=== PATIENT | male | born 1945 | race African-American/Black ===

== ENCOUNTER 2017-05-29 17:00 | Inpatient (IN) | payer MEDICARE, MEDICAID ==
[~2017-05-29] VITALS: Ht 182.9 cm; Wt 76.9 kg
[~2017-05-29 17:00] MED LIST: ASPI81TA27 PO; ATOR20TA50 PO; CAPT12.533 PO; CARV6.2551 PO; FURO20TA3 PO; SPIR25TA89 PO
[2017-05-29] MEDS ORDERED: SODIUM CHLORIDE 0.9% 1,000 ML IVB ONE (17:35)
[2017-05-29 17:43] LABS: Basophils # (auto) 0 uL; Basophils % (auto) 0.7 % (0.0-2.0); CONDITION Y; Eosinophils # (auto) 0 uL; Eosinophils % (auto) 0.1 % (0.0-7.0); Hematocrit 46.7 % (41.0-53.0); Hemoglobin 15.9 g/dL (13.5-17.5); Lymphocytes # (auto) 1.8 uL; Lymphocytes % (auto) 23.4 % (10.0-50.0); Mean Corpuscular Hemoglobin 33.2 pg (28.0-32.0); Mean Corpuscular Volume 97.6 fL (80.0-100.0); Mean Platelet Volume 9.5 fL (7.4-10.4); Monocytes # (auto) 0.8 uL; Monocytes % (auto) 10.4 % (0.0-12.0); Neutrophils # (auto) 4.9 uL; Neutrophils % (auto) 65.4 % (37.0-80.0); Platelet Count (auto) 250 10^3/uL (140-450); Red Cell Distribution Width 14.1 % (11.6-16.0); White Blood Cell 7.5 10^3/uL (4.4-10.8)
[2017-05-29 17:54] LABS: INR 1.05 (0.9-1.15); Partial Thromboplastin Time 26.5 sec (22.64-33.71); Prothrombin Time 11.4 sec (9.37-12.3)
[2017-05-29 18:00] LABS: Magnesium 2.2 mg/dL (1.6-2.6)
[2017-05-29 18:01] LABS: Albumin 3.6 g/dL (3.4-5.0); BUN/Creatinine Ratio 23.4; Bilirubin, Total 1.5 mg/dL (0.2-1.0); Calcium 8.7 mg/dL (8.5-10.1); Potassium 3.7 mmol/L (3.5-5.1); Total Protein 8.3 g/dL (6.4-8.2)
[2017-05-29] MEDS ORDERED: ONDANSETRON HCL 4 MG/2 ML VIAL IV ONE ×2 (18:15→20:30)
[2017-05-29] MEDS ORDERED: MORPHINE SULF INJ 2 MG/ML SYRINGE 1ML IV ONE (20:30)
[2017-05-29 21:57] LABS: Temperature: 22.2 C (20.0-25.0)
[2017-05-29] MEDS ORDERED: PANTOPRAZOLE SODIUM 40 MG/10 ML VIAL IV ONE (22:15)
[2017-05-29] MEDS ORDERED: TEMAZEPAM 15 MG CAP PO PRN (22:15)
[2017-05-29] MEDS ORDERED: DEXTROSE (50%) 50ML SYRG IV PRN (22:15)
[2017-05-29] MEDS ORDERED: ACETAMINOPHEN 325 MG TAB PO PRN (22:15)
[2017-05-29 23:05] VITALS: BP 114/43
[2017-05-29] MEDS: ACCU-CHEK COMFORT CURVE STRIP VI SCH (23:59)
[2017-05-29] MEDS: InsuLIN REG 1unit/0.01ml Soln (100units/ml) SC SCH (23:59)
[2017-05-30] MEDS ORDERED: METF-370 PO (01:05)
[2017-05-30] MEDS ORDERED: TEMA15CA PO (01:05)
[2017-05-30] MEDS ORDERED: OXYC30TA50 PO (01:05)
[2017-05-30] MEDS ORDERED: TRAZ100T2 PO (01:05)
[2017-05-30] MEDS ORDERED: OXYC15TA77 PO (01:05)
[2017-05-30 05:01] VITALS: BP 129/74
[2017-05-30] MEDS: ACCU-CHEK COMFORT CURVE STRIP VI SCH ×3 (05:58→18:07)
[2017-05-30] MEDS: InsuLIN REG 1unit/0.01ml Soln (100units/ml) SC SCH ×3 (05:58→18:00)
[2017-05-30 06:20] LABS: Basophils # (auto) 0 uL; Basophils % (auto) 0.2 % (0.0-2.0); CONDITION Y; Eosinophils # (auto) 0 uL; Eosinophils % (auto) 0.4 % (0.0-7.0); Hematocrit 43.8 % (41.0-53.0); Hemoglobin 14.9 g/dL (13.5-17.5); Lymphocytes # (auto) 2.5 uL; Lymphocytes % (auto) 32.2 % (10.0-50.0); Mean Corpuscular Hemoglobin 33.3 pg (28.0-32.0); Mean Corpuscular Volume 97.9 fL (80.0-100.0); Mean Platelet Volume 9.6 fL (7.4-10.4); Monocytes # (auto) 1.1 uL; Monocytes % (auto) 13.9 % (0.0-12.0); Neutrophils # (auto) 4.1 uL; Neutrophils % (auto) 53.3 % (37.0-80.0); Platelet Count (auto) 229 10^3/uL (140-450); Red Cell Distribution Width 13.9 % (11.6-16.0); White Blood Cell 7.7 10^3/uL (4.4-10.8)
[2017-05-30 06:27] LABS: Albumin 3.2 g/dL (3.4-5.0); Calcium 8.5 mg/dL (8.5-10.1); Potassium 3.7 mmol/L (3.5-5.1)
[2017-05-30 06:31] LABS: BUN/Creatinine Ratio 23.7; Bilirubin, Total 1.5 mg/dL (0.2-1.0); Total Protein 7.2 g/dL (6.4-8.2)
[2017-05-30] MEDS: HYDROcodone-ACET 5/325MG TAB PO PRN ×2 (08:41→15:49)
[2017-05-30] MEDS: ONDANSETRON HCL 4 MG/2 ML VIAL IV PRN ×2 (08:41→15:48)
[2017-05-30 08:47] VITALS: BP 124/79
[2017-05-30] MEDS: ENOXAPARIN SOD 40 MG/0.4 ML SYRINGE SC SCH (09:44)
[2017-05-30] MEDS: CARVEDILOL 3.125 MG TAB PO SCH ×2 (09:45→22:35)
[2017-05-30] MEDS: SPIRONOLACTONE 25 MG TAB PO SCH (09:45)
[2017-05-30] MEDS: ASPirin 81 mg TAB PO SCH (09:46)
[2017-05-30] MEDS: FUROSEMIDE 40 MG TAB PO SCH (09:46)
[2017-05-30] MEDS ORDERED: PANTOPRAZOLE SODIUM 40 MG/10 ML VIAL IV SCH (10:00)
[2017-05-30 12:40] VITALS: BP 144/49
[2017-05-30] MEDS ORDERED: LACTULOSE 20Gm/30ML SOLN PO PRN (14:30)
[2017-05-30 17:22] VITALS: BP 118/62
[2017-05-30 17:49] LABS: Urine Bilirubin Negative (Negative); Urine Color Yellow (Yellow); Urine Glucose Normal (Normal); Urine Hyaline Cast FEW /lpf (0 - 2); Urine Ketone Negative (Negative); Urine Mucus FEW (None Seen); Urine Nitrite Negative (Negative); Urine RBC 36 /hpf (0 - 3); Urine Squamous Epithelial Cell FEW /hpf (<5)
[2017-05-30 17:51] LABS: Urine Blood 2+ /uL (Negative)
[2017-05-30 20:00] VITALS: BP 109/70
[2017-05-30] MEDS: PANTOPRAZOLE SODIUM 40 MG/10 ML VIAL IV SCH (21:15)
[2017-05-30 21:30] VITALS: BP 109/70
[2017-05-30] MEDS ORDERED: ATORVASTATIN 20 MG TAB PO SCH (22:00)
[2017-05-31] MEDS: InsuLIN REG 1unit/0.01ml Soln (100units/ml) SC SCH ×2 (00:14→06:00)
[2017-05-31] MEDS: ACCU-CHEK COMFORT CURVE STRIP VI SCH ×2 (00:14→06:05)
[2017-05-31 05:00] VITALS: BP 95/55
[2017-05-31 09:00] VITALS: BP 100/57
[2017-05-31] MEDS: PANTOPRAZOLE SODIUM 40 MG/10 ML VIAL IV SCH (09:55)
[2017-05-31] MEDS: ENOXAPARIN SOD 40 MG/0.4 ML SYRINGE SC SCH (09:55)
[2017-05-31] MEDS: ASPirin 81 mg TAB PO SCH (09:56)
[2017-05-31] MEDS: FUROSEMIDE 40 MG TAB PO SCH (09:56)
[2017-05-31] MEDS: SPIRONOLACTONE 25 MG TAB PO SCH (09:56)
[2017-05-31 12:46] VITALS: BP 100/57
== END 2017-05-31 15:30 | disposition home or self-care (01) | DRG 392 ==
LOC: ER 17:16 → OVERFLOW 17:17 → WEST WING 23:05
PROVIDERS: ADMIT Nurse Practitioner; ATTEND Internal Medicine Pulmonary Disease
DX: K29.70 Gastritis, unspecified, without bleeding (principal); I50.42 Chronic combined systolic (congestive) and diastolic (congestive) heart failure; E11.9 Type 2 diabetes mellitus without complications; E78.5 Hyperlipidemia, unspecified; J44.9 Chronic obstructive pulmonary disease, unspecified; E86.0 Dehydration; F17.210 Nicotine dependence, cigarettes, uncomplicated; I11.0 Hypertensive heart disease with heart failure; I25.10 Atherosclerotic heart disease of native coronary artery without angina pectoris; K40.90 Unilateral inguinal hernia, without obstruction or gangrene, not specified as recurrent; K42.9 Umbilical hernia without obstruction or gangrene; N28.1 Cyst of kidney, acquired; E80.6 Other disorders of bilirubin metabolism; Z82.49 Family history of ischemic heart disease and other diseases of the circulatory system; Z83.3 Family history of diabetes mellitus; Z87.442 Personal history of urinary calculi; Z79.82 Long term (current) use of aspirin
CPT/HCPCS: 36415; 71010; 74176; 80053; 81001; 82150; 82962; 83690; 83735; 83880; 84484; 85025; 85610; 85730; 93005; 94761; 96361; 96374; 96375; 96376; C9113; J1815; J2405

== ENCOUNTER 2018-07-01 17:21 | Emergency (ER) | payer MEDICARE, MEDICAID ==
[~2018-07-01] VITALS: Ht 182.9 cm; Wt 81.6 kg
[~2018-07-01 17:21] MED LIST changes: +CAPT12.52 PO; -CAPT12.533 PO; +ESOM40CA39 PO; +FLUO20CA19 PO; +GLIP5TAB77 PO; +LORA-622 PO; +METF-370 PO; +ONDA4TAB5 PO; +OXYC15TA77 PO; +OXYC30TA50 PO; +POTA20TA53 PO; +TEMA15CA PO; +TRAZ100T2 PO
[2018-07-01 20:49] VITALS: BP 90/66
[2018-07-01] MEDS ORDERED: MEPERIDINE HCL (25 MG/ML) 1ML VIAL IM ONE (21:15)
== END 2018-07-01 22:47 | disposition home or self-care (01) ==
LOC: ER 17:22
DX: M54.2 Cervicalgia (principal); R51 Headache; I11.0 Hypertensive heart disease with heart failure; I50.9 Heart failure, unspecified; J44.9 Chronic obstructive pulmonary disease, unspecified; E78.5 Hyperlipidemia, unspecified; I25.10 Atherosclerotic heart disease of native coronary artery without angina pectoris; F17.210 Nicotine dependence, cigarettes, uncomplicated; Z87.442 Personal history of urinary calculi; Z79.82 Long term (current) use of aspirin
CPT/HCPCS: 70450; 71046; 72125; 96372; 99284; J2175

== ENCOUNTER 2018-07-08 15:13 | Inpatient (IN) | payer MEDICARE, MEDICAID ==
[~2018-07-08] VITALS: Ht 182.9 cm; Wt 88.2 kg
[~2018-07-08 15:13] MED LIST changes: +SPIR25TA8 PO; -SPIR25TA89 PO
[2018-07-08 16:22] LABS: Basophils # (auto) 0 uL; Eosinophils # (auto) 0.1 uL; Eosinophils % (auto) 1.1 % (0.0-7.0); Lymphocytes # (auto) 0.5 uL; Lymphocytes % (auto) 8.6 % (10.0-50.0); Monocytes # (auto) 0.5 uL
[2018-07-08 16:23] LABS: Basophils % (auto) 0.6 % (0.0-2.0); Hematocrit 41.7 % (41.0-53.0); Mean Corpuscular Hgb Conc. 33.5 g/dL (32.0-36.0); Mean Corpuscular Volume 104.7 fL (80.0-100.0); Monocytes % (auto) 7.7 % (0.0-12.0); Neutrophils # (auto) 5.1 uL; Nucleated Red Blood Cells % 0.1 %; Platelet Count (auto) 165 10^3/uL (140-450); Red Blood Cells 3.98 10^6/uL (4.5-5.90); Red Cell Distribution Width 14.5 % (11.8-14.3); White Blood Cell 6.2 10^3/uL (4.4-10.8)
[2018-07-08 16:38] LABS: Albumin 3.2 g/dL (3.4-5.0); BUN/Creatinine Ratio 16.5; Bilirubin, Total 1.5 mg/dL (0.2-1.0); Calcium 8.4 mg/dL (8.5-10.1); Magnesium 2.1 mg/dL (1.6-2.6); Potassium 4.2 mmol/L (3.5-5.1); Total Protein 7.2 g/dL (6.4-8.2)
[2018-07-08] MEDS ORDERED: FUROSEMIDE 20 MG/2 ML VIAL IV ONE ×2 (20:00→22:15)
[2018-07-08] MEDS ORDERED: MORPHINE SULF INJ 2 MG/ML SYRINGE 1ML IV ONE ×2 (20:15→21:45)
[2018-07-08] MEDS ORDERED: ONDANSETRON HCL 4 MG/2 ML VIAL IV ONE (20:15)
[2018-07-08] MEDS ORDERED: LORazepam 2MG/ML-1ML VIAL IV ONE (22:15)
[2018-07-08] MEDS ORDERED: MORPHINE SULFATE 4 MG/ML SYR/VIAL IV ONE (22:15)
[2018-07-08] MEDS ORDERED: IOHEXOL 350 MG/ML 100ML IJ ONE (22:23)
[2018-07-09] MEDS ORDERED: ACETAMINOPHEN 325 MG TAB PO PRN (01:30)
[2018-07-09] MEDS ORDERED: ONDANSETRON HCL 4 MG/2 ML VIAL IV PRN (01:30)
[2018-07-09] MEDS ORDERED: MORPHINE SULF INJ 2 MG/ML SYRINGE 1ML IV PRN ×2 (01:30)
[2018-07-09] MEDS ORDERED: NITROGLYCERIN 0.4 MG SL TAB SL PRN (01:30)
[2018-07-09] MEDS ORDERED: ETOMIDATE (2MG/ML) 20ML VIAL IV ONE (03:45)
[2018-07-09] MEDS ORDERED: cefTRIAXone 1GM/10ml IVPUSH 10 ML IV ONE ×3 (05:30→13:15)
[2018-07-09] MEDS ORDERED: ALBUTEROL SULF 2.5 MG/0.5ML(0.5%) NEB SOLN NEB ONE ×2 (05:30)
[2018-07-09] MEDS ORDERED: IPRATROPIUM BROM 0.5 MG/2.5ML INH SOL NEB ONE ×2 (05:30)
[2018-07-09] MEDS ORDERED: LORazepam 2MG/ML-1ML VIAL ONE (05:58)
[2018-07-09] MEDS ORDERED: HALOPERIDOL LACTATE 5 MG/ML INJ VIAL IM ONE (06:00)
[2018-07-09] MEDS ORDERED: LORazepam 2MG/ML-1ML VIAL IM PRN (06:00)
[2018-07-09] MEDS ORDERED: diphenhdrAMINE HCL 50 MG/1 ML VL IM ONE (06:00)
[2018-07-09] MEDS ORDERED: LORazepam 2MG/ML-1ML VIAL IV PRN (06:30)
[2018-07-09 08:00] VITALS: BP_SYST 105; BP_SYST 110; BP_DIAS 47; BP_DIAS 72
[2018-07-09] MEDS: glipiZIDE 5 MG TAB PO SCH (08:00)
[2018-07-09] MEDS: FUROSEMIDE 20 MG/2 ML VIAL IV SCH ×2 (09:34→18:42)
[2018-07-09] MEDS: LORATADINE 10 MG TAB PO SCH (10:00)
[2018-07-09] MEDS: SPIRONOLACTONE 25 MG TAB PO SCH (10:00)
[2018-07-09] MEDS: ASPirin 81 mg TAB PO SCH (10:00)
[2018-07-09] MEDS: FAMOTIDINE 20 MG TAB PO SCH ×2 (10:00→22:30)
[2018-07-09] MEDS: POTASSIUM CHL 20 Meq TABLET PO SCH (10:00)
[2018-07-09] MEDS: ENOXAPARIN SOD 40 MG/0.4 ML SYRINGE SC SCH (11:39)
[2018-07-09 12:00] VITALS: BP 120/72
[2018-07-09] MEDS ORDERED: AZITHROMYCIN 500MG/ 250ML 250 ML IV ONE (13:15)
[2018-07-09 14:03] LABS: Potassium 4.1 mmol/L (3.5-5.1)
[2018-07-09 14:06] LABS: Magnesium 1.9 mg/dL (1.6-2.6)
[2018-07-09] MEDS: LORazepam 2MG/ML-1ML VIAL IV PRN (15:45)
[2018-07-09 15:48] VITALS: BP 123/70
[2018-07-09] MEDS ORDERED: DEXTROSE (50%) 50ML SYRG IV PRN (19:45)
[2018-07-09 20:00] VITALS: BP 107/59
[2018-07-09] MEDS: SACUBITRIL-VALSARTAN 24mg/26mg TAB PO SCH (22:30)
[2018-07-09] MEDS: TEMAZEPAM 15 MG CAP PO PRN (22:30)
[2018-07-09] MEDS: ATORVASTATIN 20 MG TAB PO SCH (22:31)
[2018-07-10] VITALS (45 sets, daily range): BP systolic 75–122; BP diastolic 38–69
[2018-07-10] MEDS: MIDAZOLAM DRIP 50 mg/50mL 50 ML IV SCH (00:21)
[2018-07-10] MEDS: ACCU-CHEK COMFORT CURVE STRIP VI SCH ×4 (00:23→17:20)
[2018-07-10] MEDS: InsuLIN REG 1unit/0.01ml Soln (100units/ml) SC SCH ×3 (00:24→17:45)
[2018-07-10] MEDS: LORazepam 2MG/ML-1ML VIAL IV PRN (03:18)
[2018-07-10 05:25] LABS: Basophils # (auto) 0 uL; Eosinophils # (auto) 0 uL; Lymphocytes # (auto) 0.8 uL; Lymphocytes % (auto) 8.1 % (10.0-50.0); Monocytes # (auto) 1.1 uL; Monocytes % (auto) 10.9 % (0.0-12.0); Neutrophils # (auto) 7.8 uL; Nucleated Red Blood Cells % 0.1 %
[2018-07-10 05:27] LABS: Basophils % (auto) 0.1 % (0.0-2.0); Hematocrit 41.5 % (41.0-53.0); Hemoglobin 13.9 g/dL (13.5-17.5); Mean Corpuscular Hemoglobin 34.9 pg (28.0-32.0); Mean Corpuscular Hgb Conc. 33.4 g/dL (32.0-36.0); Mean Corpuscular Volume 104.3 fL (80.0-100.0); Neutrophils % (auto) 80.9 % (37.0-80.0); Platelet Count (auto) 153 10^3/uL (140-450); Red Blood Cells 3.98 10^6/uL (4.5-5.90); Red Cell Distribution Width 14.6 % (11.8-14.3); White Blood Cell 9.7 10^3/uL (4.4-10.8)
[2018-07-10 05:52] LABS: Albumin 2.8 g/dL (3.4-5.0); BUN/Creatinine Ratio 21.1; Bilirubin, Total 0.7 mg/dL (0.2-1.0); Calcium 8.5 mg/dL (8.5-10.1); Potassium 4.1 mmol/L (3.5-5.1); Total Protein 6.7 g/dL (6.4-8.2)
[2018-07-10] MEDS: FUROSEMIDE 20 MG/2 ML VIAL IV SCH ×2 (06:32→17:20)
[2018-07-10] MEDS: IPRATROPIUM BROM 0.5 MG/2.5ML INH SOL NEB SCH ×4 (07:18→19:06)
[2018-07-10] MEDS: MAGNESIUM SULFATE 1GM/100ML 100 ML IV SCH ×2 (08:19→09:45)
[2018-07-10] MEDS: POTASSIUM CHL 20 Meq TABLET PO SCH (08:54)
[2018-07-10] MEDS: LORATADINE 10 MG TAB PO SCH (08:54)
[2018-07-10] MEDS: SPIRONOLACTONE 25 MG TAB PO SCH (08:54)
[2018-07-10] MEDS: ASPirin 81 mg TAB PO SCH (08:54)
[2018-07-10] MEDS: ENOXAPARIN SOD 40 MG/0.4 ML SYRINGE SC SCH (08:55)
[2018-07-10] MEDS: glipiZIDE 5 MG TAB PO SCH (08:56)
[2018-07-10] MEDS: SACUBITRIL-VALSARTAN 24mg/26mg TAB PO SCH ×2 (08:58→22:00)
[2018-07-10] MEDS ORDERED: cefTRIAXone 1GM/10ml IVPUSH 10 ML IV SCH (09:00)
[2018-07-10] MEDS ORDERED: AZITHROMYCIN 500MG/ 250ML 250 ML IV SCH (10:00)
[2018-07-10] MEDS: FAMOTIDINE 20 MG TAB PO SCH ×2 (10:00→22:05)
[2018-07-10] MEDS ORDERED: IPRATROPIUM BROM 0.5 MG/2.5ML INH SOL NEB ONE (11:00)
[2018-07-10] MEDS ORDERED: NOREPINEPHRINE 8 MG/250ML KIT 250 ML IV ONE (13:29)
[2018-07-10] MEDS ORDERED: SODIUM CHLORIDE 0.9% 1,000 ML IV ONE (13:45)
[2018-07-10] MEDS ORDERED: FUROSEMIDE 20 MG/2 ML VIAL IV ONE (13:45)
[2018-07-10] MEDS: NOREPINEPHRINE 8 MG/250ML KIT 250 ML IV SCH (14:08)
[2018-07-10] MEDS ORDERED: ETOMIDATE (2MG/ML) 20ML VIAL IV ONE (14:14)
[2018-07-10] MEDS ORDERED: MIDAZOLAM DRIP 50 mg/50mL 50 ML IV ONE (14:14)
[2018-07-10] MEDS ORDERED: PROPOFOL 100 ML IV ONE ×2 (14:15→19:45)
[2018-07-10] MEDS ORDERED: ROCURONIUM 10MG/ML 10ML VIAL IV ONE (14:35)
[2018-07-10] MEDS ORDERED: AMIODARONE HCL 150 MG in D5W 5% 100 ML IV ONE (16:45)
[2018-07-10] MEDS ORDERED: AMIODARONE HCL 900 MG in DEXTROSE 500 ML IV SCH ×2 (17:00→23:00)
[2018-07-10 18:18] LABS: Albumin 2.3 g/dL (3.4-5.0); Bilirubin, Direct 0.4 mg/dL (0-0.2); Bilirubin, Total 0.7 mg/dL (0.2-1.0); Total Protein 5.9 g/dL (6.4-8.2)
[2018-07-10] MEDS: PROPOFOL 100 ML IV SCH (19:45)
[2018-07-10] MEDS: ATORVASTATIN 20 MG TAB PO SCH (22:05)
[2018-07-10] MEDS: DOBUTamine 1000MCG/ML 250 ML IV SCH (22:41)
[2018-07-11] VITALS (106 sets, daily range): BP systolic 94–144; BP diastolic 40–92
[2018-07-11] MEDS: PIPERACILLIN-TAZOB 3.375GM 100 ML IV SCH ×5 (00:15→23:55)
[2018-07-11] MEDS: ACCU-CHEK COMFORT CURVE STRIP VI SCH ×5 (00:16→23:55)
[2018-07-11] MEDS: InsuLIN REG 1unit/0.01ml Soln (100units/ml) SC SCH ×5 (00:40→23:55)
[2018-07-11 04:07] LABS: Basophils # (auto) 0 uL; Eosinophils # (auto) 0 uL; Lymphocytes # (auto) 0.9 uL; Mean Corpuscular Hemoglobin 34.3 pg (28.0-32.0); Monocytes # (auto) 0.7 uL; Monocytes % (auto) 10.7 % (0.0-12.0); Nucleated Red Blood Cells % 0.1 %; White Blood Cell 6.9 10^3/uL (4.4-10.8)
[2018-07-11 04:11] LABS: Basophils % (auto) 0.4 % (0.0-2.0); Eosinophils % (auto) 0.6 % (0.0-7.0); Hematocrit 41.6 % (41.0-53.0); Hemoglobin 13.7 g/dL (13.5-17.5); Lymphocytes % (auto) 13.6 % (10.0-50.0); Mean Corpuscular Hgb Conc. 32.8 g/dL (32.0-36.0); Neutrophils # (auto) 5.1 uL; Neutrophils % (auto) 74.7 % (37.0-80.0); Platelet Count (auto) 178 10^3/uL (140-450); Red Blood Cells 3.98 10^6/uL (4.5-5.90); Red Cell Distribution Width 14.4 % (11.8-14.3)
[2018-07-11 04:30] LABS: Albumin 2.2 g/dL (3.4-5.0); Potassium 3.6 mmol/L (3.5-5.1)
[2018-07-11 04:35] LABS: Bilirubin, Total 0.9 mg/dL (0.2-1.0); Total Protein 5.8 g/dL (6.4-8.2)
[2018-07-11] MEDS: FUROSEMIDE 20 MG/2 ML VIAL IV SCH ×2 (05:39→18:00)
[2018-07-11] MEDS: IPRATROPIUM BROM 0.5 MG/2.5ML INH SOL NEB SCH ×4 (06:31→19:01)
[2018-07-11] MEDS: ALBUTEROL SULF 2.5 MG/0.5ML(0.5%) NEB SOLN NEB PRN ×4 (06:31→19:01)
[2018-07-11] MEDS ORDERED: LACTULOSE 20Gm/30ML SOLN NG ONE (09:15)
[2018-07-11] MEDS: PROPOFOL 100 ML IV SCH ×2 (09:25→17:18)
[2018-07-11] MEDS: MIDAZOLAM DRIP 50 mg/50mL 50 ML IV SCH ×2 (09:25→21:40)
[2018-07-11] MEDS: ASPirin 81 mg TAB PO SCH (09:35)
[2018-07-11] MEDS: glipiZIDE 5 MG TAB PO SCH (09:35)
[2018-07-11] MEDS: LORATADINE 10 MG TAB PO SCH (09:36)
[2018-07-11] MEDS: ENOXAPARIN SOD 40 MG/0.4 ML SYRINGE SC SCH (09:37)
[2018-07-11] MEDS: FAMOTIDINE 20 MG TAB PO SCH ×2 (09:37→21:40)
[2018-07-11] MEDS: SACUBITRIL-VALSARTAN 24mg/26mg TAB PO SCH ×2 (10:00→21:40)
[2018-07-11] MEDS: POTASSIUM CHL 20 Meq TABLET PO SCH (10:00)
[2018-07-11] MEDS: SPIRONOLACTONE 25 MG TAB PO SCH (10:00)
[2018-07-11] MEDS: NOREPINEPHRINE 8 MG/250ML KIT 250 ML IV SCH (16:14)
[2018-07-11] MEDS: AMIODARONE HCL 200 MG TAB PO SCH ×2 (16:16→21:44)
[2018-07-11] MEDS: DOBUTamine 1000MCG/ML 250 ML IV SCH (16:29)
[2018-07-11] MEDS: ATORVASTATIN 20 MG TAB PO SCH (21:40)
[2018-07-12] VITALS (104 sets, daily range): BP systolic 70–156; BP diastolic 41–95
[2018-07-12] MEDS: NOREPINEPHRINE 8 MG/250ML KIT 250 ML IV SCH ×2 (04:00→13:39)
[2018-07-12 04:34] LABS: Basophils # (auto) 0 uL; Eosinophils # (auto) 0 uL; Lymphocytes # (auto) 0.6 uL; Nucleated Red Blood Cells % 0.1 %
[2018-07-12 04:36] LABS: Basophils % (auto) 0.5 % (0.0-2.0); Eosinophils % (auto) 0.7 % (0.0-7.0); Hematocrit 43.3 % (41.0-53.0); Hemoglobin 14.6 g/dL (13.5-17.5); Lymphocytes % (auto) 9.2 % (10.0-50.0); Mean Corpuscular Hemoglobin 36.1 pg (28.0-32.0); Mean Corpuscular Hgb Conc. 33.8 g/dL (32.0-36.0); Mean Corpuscular Volume 106.9 fL (80.0-100.0); Monocytes # (auto) 0.6 uL; Monocytes % (auto) 10.4 % (0.0-12.0); Neutrophils # (auto) 4.9 uL; Neutrophils % (auto) 79.2 % (37.0-80.0); Platelet Count (auto) 175 10^3/uL (140-450); Red Blood Cells 4.05 10^6/uL (4.5-5.90); Red Cell Distribution Width 14.9 % (11.8-14.3); White Blood Cell 6.2 10^3/uL (4.4-10.8)
[2018-07-12 04:49] LABS: Alanine Aminotransferase 28 U/L (16-61); Albumin 1.9 g/dL (3.4-5.0); Anion Gap 10 (5-15); BUN/Creatinine Ratio 18.5; Blood Urea Nitrogen 20 mg/dL (7-18); Calcium 7.6 mg/dL (8.5-10.1); Carbon Dioxide 24 mmol/L (21-32); Chloride 109 mmol/L (98-107); GFR African American 87 mL/min; GFR Non-African American 72 mL/min; Glucose 139 mg/dL (74-106); Potassium 3.9 mmol/L (3.5-5.1); Sodium 143 mmol/L (136-145)
[2018-07-12 04:52] LABS: Alkaline Phosphatase 76 U/L (45-117); Aspartate Aminotransferase 19 U/L (15-37); Bilirubin, Total 0.9 mg/dL (0.2-1.0); Total Protein 5.1 g/dL (6.4-8.2)
[2018-07-12] MEDS: PROPOFOL 100 ML IV SCH (05:00)
[2018-07-12] MEDS: ACCU-CHEK COMFORT CURVE STRIP VI SCH ×3 (05:57→18:10)
[2018-07-12] MEDS: InsuLIN REG 1unit/0.01ml Soln (100units/ml) SC SCH ×3 (05:57→18:00)
[2018-07-12] MEDS: PIPERACILLIN-TAZOB 3.375GM 100 ML IV SCH ×3 (05:57→18:09)
[2018-07-12] MEDS: IPRATROPIUM BROM 0.5 MG/2.5ML INH SOL NEB SCH ×2 (06:02→18:44)
[2018-07-12] MEDS: FUROSEMIDE 20 MG/2 ML VIAL IV SCH ×2 (06:18→18:09)
[2018-07-12] MEDS: glipiZIDE 5 MG TAB PO SCH (08:00)
[2018-07-12] MEDS ORDERED: LACTULOSE 20Gm/30ML SOLN PO ONE (08:30)
[2018-07-12 09:09] LABS: Hepatitis B Surface Antibody Negative
[2018-07-12] MEDS: ASPirin 81 mg TAB PO SCH (09:24)
[2018-07-12] MEDS: SPIRONOLACTONE 25 MG TAB PO SCH (09:25)
[2018-07-12] MEDS: FAMOTIDINE 20 MG TAB PO SCH ×2 (09:25→22:12)
[2018-07-12] MEDS: LORATADINE 10 MG TAB PO SCH (09:26)
[2018-07-12] MEDS: AMIODARONE HCL 200 MG TAB PO SCH ×2 (09:26→22:13)
[2018-07-12] MEDS: POTASSIUM CHL 20 Meq TABLET PO SCH (09:27)
[2018-07-12] MEDS: SACUBITRIL-VALSARTAN 24mg/26mg TAB PO SCH ×2 (09:27→22:12)
[2018-07-12] MEDS: ENOXAPARIN SOD 40 MG/0.4 ML SYRINGE SC SCH (09:27)
[2018-07-12] MEDS: LACTULOSE 20Gm/30ML SOLN PO SCH ×2 (09:28→22:12)
[2018-07-12 10:05] LABS: Hepatitis B Surface Antigen Negative (Negative)
[2018-07-12] MEDS: DOBUTamine 1000MCG/ML 250 ML IV SCH (13:49)
[2018-07-12] MEDS: ALBUTEROL SULF 2.5 MG/0.5ML(0.5%) NEB SOLN NEB PRN (18:44)
[2018-07-12] MEDS: MIDAZOLAM DRIP 50 mg/50mL 50 ML IV SCH (18:58)
[2018-07-12] MEDS: ATORVASTATIN 20 MG TAB PO SCH (22:12)
[2018-07-12] MEDS: QUEtiapine FUMARATE 25 MG TAB PO SCH (22:12)
[2018-07-13] VITALS (104 sets, daily range): BP systolic 89–135; BP diastolic 40–91
[2018-07-13] MEDS: ACCU-CHEK COMFORT CURVE STRIP VI SCH ×5 (00:30→23:51)
[2018-07-13] MEDS: PIPERACILLIN-TAZOB 3.375GM 100 ML IV SCH ×5 (00:30→23:51)
[2018-07-13] MEDS: InsuLIN REG 1unit/0.01ml Soln (100units/ml) SC SCH ×5 (00:30→23:51)
[2018-07-13 04:11] LABS: Basophils # (auto) 0 uL; Basophils % (auto) 0.3 % (0.0-2.0); Eosinophils # (auto) 0.1 uL; Eosinophils % (auto) 1.5 % (0.0-7.0); Hemoglobin 13.8 g/dL (13.5-17.5); Lymphocytes # (auto) 0.7 uL; Monocytes # (auto) 0.7 uL; Monocytes % (auto) 11.9 % (0.0-12.0); Neutrophils # (auto) 4.4 uL
[2018-07-13 04:14] LABS: Hematocrit 40.3 % (41.0-53.0); Lymphocytes % (auto) 11.2 % (10.0-50.0); Mean Corpuscular Hemoglobin 35.2 pg (28.0-32.0); Mean Corpuscular Hgb Conc. 34.3 g/dL (32.0-36.0); Mean Corpuscular Volume 102.9 fL (80.0-100.0); Neutrophils % (auto) 75.1 % (37.0-80.0); Platelet Count (auto) 188 10^3/uL (140-450); Red Blood Cells 3.91 10^6/uL (4.5-5.90); White Blood Cell 5.8 10^3/uL (4.4-10.8)
[2018-07-13 04:41] LABS: Albumin 1.9 g/dL (3.4-5.0); BUN/Creatinine Ratio 13.3; Potassium 3.1 mmol/L (3.5-5.1)
[2018-07-13 04:44] LABS: Total Protein 5.8 g/dL (6.4-8.2)
[2018-07-13] MEDS: DEXMEDETOMIDINE HCL 400 MCG in D5W 5% 96 ML IV SCH (04:56)
[2018-07-13] MEDS ORDERED: POTASSIUM CHL 20MEQ/100ML 100 ML IV ONE ×2 (05:32→06:00)
[2018-07-13] MEDS: FUROSEMIDE 20 MG/2 ML VIAL IV SCH ×2 (06:25→18:23)
[2018-07-13] MEDS: IPRATROPIUM BROM 0.5 MG/2.5ML INH SOL NEB SCH ×4 (06:35→18:12)
[2018-07-13] MEDS: ALBUTEROL SULF 2.5 MG/0.5ML(0.5%) NEB SOLN NEB PRN ×4 (06:35→18:12)
[2018-07-13] MEDS ORDERED: POTASSIUM EFFERVESENT TAB 25 MEQ GT ONE (08:15)
[2018-07-13] MEDS: DOBUTamine 1000MCG/ML 250 ML IV SCH (08:19)
[2018-07-13] MEDS: ASPirin 81 mg TAB PO SCH (10:43)
[2018-07-13] MEDS: LACTULOSE 20Gm/30ML SOLN PO SCH ×2 (10:44→22:09)
[2018-07-13] MEDS: LORATADINE 10 MG TAB PO SCH (10:44)
[2018-07-13] MEDS: SPIRONOLACTONE 25 MG TAB PO SCH (10:44)
[2018-07-13] MEDS: AMIODARONE HCL 200 MG TAB PO SCH ×2 (10:45→22:10)
[2018-07-13] MEDS: SACUBITRIL-VALSARTAN 24mg/26mg TAB PO SCH ×2 (10:45→22:09)
[2018-07-13] MEDS: FAMOTIDINE 20 MG TAB PO SCH ×2 (10:46→22:09)
[2018-07-13] MEDS: POTASSIUM CHL 20 Meq TABLET PO SCH (10:46)
[2018-07-13] MEDS: ENOXAPARIN SOD 40 MG/0.4 ML SYRINGE SC SCH (10:47)
[2018-07-13] MEDS: QUEtiapine FUMARATE 25 MG TAB PO SCH ×2 (10:47→22:09)
[2018-07-13] MEDS: THIAMINE INJ 100 MG, MULTIPLE VITAMIN 10 ML, FOLIC ACID 1 MG, MAGNESIUM SULF SDV 50% 8 ... IV SCH ×5 (13:30)
[2018-07-13] MEDS: NOREPINEPHRINE 8 MG/250ML KIT 250 ML IV SCH (15:00)
[2018-07-13] MEDS: MIDAZOLAM DRIP 50 mg/50mL 50 ML IV SCH (18:23)
[2018-07-13] MEDS: PROPOFOL 100 ML IV SCH (18:36)
[2018-07-13] MEDS: ATORVASTATIN 20 MG TAB PO SCH (22:09)
[2018-07-14] VITALS (58 sets, daily range): BP systolic 91–156; BP diastolic 40–96
[2018-07-14] MEDS: PROPOFOL 100 ML IV SCH (00:30)
[2018-07-14] MEDS: DOBUTamine 1000MCG/ML 250 ML IV SCH (02:18)
[2018-07-14 03:55] LABS: Eosinophils # (auto) 0.2 uL; Nucleated Red Blood Cells % 0.1 %; Red Blood Cells 3.92 10^6/uL (4.5-5.90); White Blood Cell 6.6 10^3/uL (4.4-10.8)
[2018-07-14 03:58] LABS: Basophils # (auto) 0 uL; Basophils % (auto) 0.3 % (0.0-2.0); Eosinophils % (auto) 2.3 % (0.0-7.0); Hematocrit 40.2 % (41.0-53.0); Hemoglobin 13.3 g/dL (13.5-17.5); Lymphocytes # (auto) 0.8 uL; Lymphocytes % (auto) 11.7 % (10.0-50.0); Mean Corpuscular Hgb Conc. 33.2 g/dL (32.0-36.0); Mean Corpuscular Volume 102.4 fL (80.0-100.0); Monocytes # (auto) 0.9 uL; Monocytes % (auto) 13.5 % (0.0-12.0); Neutrophils # (auto) 4.7 uL; Neutrophils % (auto) 72.2 % (37.0-80.0); Platelet Count (auto) 198 10^3/uL (140-450); Red Cell Distribution Width 14.1 % (11.8-14.3)
[2018-07-14] MEDS: DEXMEDETOMIDINE HCL 400 MCG in D5W 5% 96 ML IV SCH (04:03)
[2018-07-14 04:12] LABS: BUN/Creatinine Ratio 8.4; Calcium 8.1 mg/dL (8.5-10.1); Potassium 3.6 mmol/L (3.5-5.1)
[2018-07-14] MEDS: InsuLIN REG 1unit/0.01ml Soln (100units/ml) SC SCH ×4 (06:00→23:33)
[2018-07-14] MEDS: FUROSEMIDE 20 MG/2 ML VIAL IV SCH ×2 (06:16→18:10)
[2018-07-14] MEDS: ACCU-CHEK COMFORT CURVE STRIP VI SCH ×4 (06:16→23:32)
[2018-07-14] MEDS: PIPERACILLIN-TAZOB 3.375GM 100 ML IV SCH ×4 (06:16→23:32)
[2018-07-14] MEDS: IPRATROPIUM BROM 0.5 MG/2.5ML INH SOL NEB SCH ×4 (06:26→18:44)
[2018-07-14] MEDS: LORATADINE 10 MG TAB PO SCH (10:00)
[2018-07-14] MEDS: AMIODARONE HCL 200 MG TAB PO SCH ×2 (10:00→21:20)
[2018-07-14] MEDS: QUEtiapine FUMARATE 25 MG TAB PO SCH ×2 (10:00→21:20)
[2018-07-14] MEDS: SACUBITRIL-VALSARTAN 24mg/26mg TAB PO SCH ×2 (10:00→21:52)
[2018-07-14] MEDS: FAMOTIDINE 20 MG TAB PO SCH ×2 (10:00→21:20)
[2018-07-14] MEDS: LACTULOSE 20Gm/30ML SOLN PO SCH ×2 (10:00→22:00)
[2018-07-14] MEDS: SPIRONOLACTONE 25 MG TAB PO SCH (10:00)
[2018-07-14] MEDS: ASPirin 81 mg TAB PO SCH (10:00)
[2018-07-14] MEDS: ENOXAPARIN SOD 40 MG/0.4 ML SYRINGE SC SCH (10:00)
[2018-07-14] MEDS: POTASSIUM CHL 20 Meq TABLET PO SCH (10:00)
[2018-07-14] MEDS ORDERED: LIDOCAINE 1% (LOCAL ANESTH.) PF 5ml SDV ONE (10:29)
[2018-07-14] MEDS ORDERED: HALOPERIDOL LACTATE 5 MG/ML INJ VIAL IV PRN (10:45)
[2018-07-14] MEDS ORDERED: fentaNYL CITRATE 100 MCG/2 ML VL IV ONE (12:00)
[2018-07-14] MEDS: THIAMINE INJ 100 MG, MULTIPLE VITAMIN 10 ML, FOLIC ACID 1 MG, MAGNESIUM SULF SDV 50% 8 ... IV SCH ×5 (12:51)
[2018-07-14] MEDS: NOREPINEPHRINE 8 MG/250ML KIT 250 ML IV SCH (13:39)
[2018-07-14] MEDS: ALBUTEROL SULF 2.5 MG/0.5ML(0.5%) NEB SOLN NEB PRN (18:45)
[2018-07-14] MEDS: ATORVASTATIN 20 MG TAB PO SCH (21:20)
[2018-07-14] MEDS: LORazepam 2MG/ML-1ML VIAL IV PRN (23:23)
[2018-07-15] MEDS: DOBUTamine 1000MCG/ML 250 ML IV SCH ×2 (01:59→22:20)
[2018-07-15] MEDS: TEMAZEPAM 15 MG CAP PO PRN (01:59)
[2018-07-15] MEDS: ACCU-CHEK COMFORT CURVE STRIP VI SCH ×4 (06:00→23:43)
[2018-07-15] MEDS: InsuLIN REG 1unit/0.01ml Soln (100units/ml) SC SCH ×4 (06:00→23:43)
[2018-07-15] MEDS: IPRATROPIUM BROM 0.5 MG/2.5ML INH SOL NEB SCH ×4 (06:05→17:57)
[2018-07-15] MEDS: PIPERACILLIN-TAZOB 3.375GM 100 ML IV SCH ×4 (07:18→23:43)
[2018-07-15] MEDS: FUROSEMIDE 20 MG/2 ML VIAL IV SCH ×2 (07:20→17:33)
[2018-07-15 07:45] VITALS: BP 124/70
[2018-07-15] MEDS: FLUCONAZOLE 200MG/100ML 100 ML IV SCH ×2 (09:38→10:53)
[2018-07-15] MEDS: ENOXAPARIN SOD 40 MG/0.4 ML SYRINGE SC SCH (09:40)
[2018-07-15] MEDS: QUEtiapine FUMARATE 25 MG TAB PO SCH ×2 (09:40→22:17)
[2018-07-15] MEDS: LORATADINE 10 MG TAB PO SCH (09:40)
[2018-07-15] MEDS: POTASSIUM CHL 20 Meq TABLET PO SCH (09:40)
[2018-07-15] MEDS: FAMOTIDINE 20 MG TAB PO SCH ×2 (09:40→22:17)
[2018-07-15] MEDS: AMIODARONE HCL 200 MG TAB PO SCH ×2 (09:41→22:17)
[2018-07-15] MEDS: ASPirin 81 mg TAB PO SCH (09:41)
[2018-07-15] MEDS: LACTULOSE 20Gm/30ML SOLN PO SCH ×3 (09:41→22:18)
[2018-07-15] MEDS: SPIRONOLACTONE 25 MG TAB PO SCH (09:41)
[2018-07-15] MEDS: LORazepam 2MG/ML-1ML VIAL IV PRN (09:42)
[2018-07-15] MEDS: HYDROcodone-ACET 5/325MG TAB PO PRN (09:42)
[2018-07-15] MEDS: SACUBITRIL-VALSARTAN 24mg/26mg TAB PO SCH ×2 (10:57→22:17)
[2018-07-15 12:00] VITALS: BP 102/65
[2018-07-15] MEDS: THIAMINE INJ 100 MG, MULTIPLE VITAMIN 10 ML, FOLIC ACID 1 MG, MAGNESIUM SULF SDV 50% 8 ... IV SCH ×5 (13:03)
[2018-07-15] MEDS: ALBUTEROL SULF 2.5 MG/0.5ML(0.5%) NEB SOLN NEB PRN (15:20)
[2018-07-15 15:44] VITALS: BP 122/82
[2018-07-15 19:42] VITALS: BP 90/57
[2018-07-15] MEDS: ATORVASTATIN 20 MG TAB PO SCH (22:17)
[2018-07-16] VITALS (7 sets, daily range): BP systolic 91–115; BP diastolic 51–75
[2018-07-16] MEDS: IPRATROPIUM BROM 0.5 MG/2.5ML INH SOL NEB SCH ×4 (06:00→18:27)
[2018-07-16] MEDS: InsuLIN REG 1unit/0.01ml Soln (100units/ml) SC SCH ×4 (06:00→23:57)
[2018-07-16] MEDS: ACCU-CHEK COMFORT CURVE STRIP VI SCH ×4 (06:10→23:57)
[2018-07-16] MEDS: PIPERACILLIN-TAZOB 3.375GM 100 ML IV SCH ×4 (06:10→23:57)
[2018-07-16] MEDS: FUROSEMIDE 20 MG/2 ML VIAL IV SCH ×2 (06:10→17:31)
[2018-07-16] MEDS: FLUCONAZOLE 200MG/100ML 100 ML IV SCH ×2 (08:41→11:34)
[2018-07-16] MEDS: FAMOTIDINE 20 MG TAB PO SCH ×2 (08:42→21:30)
[2018-07-16] MEDS: ASPirin 81 mg TAB PO SCH (08:42)
[2018-07-16] MEDS: LORATADINE 10 MG TAB PO SCH (08:43)
[2018-07-16] MEDS: SACUBITRIL-VALSARTAN 24mg/26mg TAB PO SCH ×2 (08:44→21:30)
[2018-07-16] MEDS: QUEtiapine FUMARATE 25 MG TAB PO SCH ×2 (08:45→21:30)
[2018-07-16] MEDS: POTASSIUM CHL 20 Meq TABLET PO SCH (08:46)
[2018-07-16] MEDS: ENOXAPARIN SOD 40 MG/0.4 ML SYRINGE SC SCH (08:48)
[2018-07-16] MEDS: SPIRONOLACTONE 25 MG TAB PO SCH (08:49)
[2018-07-16 09:26] LABS: Basophils # (auto) 0 uL; Eosinophils # (auto) 0.1 uL; Lymphocytes # (auto) 0.6 uL; Monocytes # (auto) 0.7 uL; Nucleated Red Blood Cells % 0.1 %; Platelet Count (auto) 199 10^3/uL (140-450)
[2018-07-16 09:29] LABS: Basophils % (auto) 0.5 % (0.0-2.0); Eosinophils % (auto) 2.1 % (0.0-7.0); Hematocrit 37.2 % (41.0-53.0); Hemoglobin 12.4 g/dL (13.5-17.5); Lymphocytes % (auto) 10.1 % (10.0-50.0); Mean Corpuscular Hemoglobin 34.3 pg (28.0-32.0); Mean Corpuscular Hgb Conc. 33.5 g/dL (32.0-36.0); Mean Corpuscular Volume 102.6 fL (80.0-100.0); Monocytes % (auto) 12.5 % (0.0-12.0); Neutrophils # (auto) 4.4 uL; Neutrophils % (auto) 74.8 % (37.0-80.0); Red Blood Cells 3.62 10^6/uL (4.5-5.90); Red Cell Distribution Width 14.2 % (11.8-14.3); White Blood Cell 5.9 10^3/uL (4.4-10.8)
[2018-07-16 09:41] LABS: Potassium 3.3 mmol/L (3.5-5.1)
[2018-07-16 09:44] LABS: Albumin 2.3 g/dL (3.4-5.0); Calcium 7.2 mg/dL (8.5-10.1)
[2018-07-16 09:47] LABS: Bilirubin, Total 0.9 mg/dL (0.2-1.0); Total Protein 5.7 g/dL (6.4-8.2)
[2018-07-16] MEDS: LACTULOSE 20Gm/30ML SOLN PO SCH ×2 (10:00→21:31)
[2018-07-16] MEDS: THIAMINE INJ 100 MG, MULTIPLE VITAMIN 10 ML, FOLIC ACID 1 MG, MAGNESIUM SULF SDV 50% 8 ... IV SCH ×5 (11:35)
[2018-07-16] MEDS ORDERED: POTASSIUM CHL 20 Meq TABLET PO ONE (13:00)
[2018-07-16] MEDS: AMIODARONE HCL 200 MG TAB PO SCH ×2 (13:29→21:30)
[2018-07-16] MEDS: DOBUTamine 1000MCG/ML 250 ML IV SCH ×2 (14:09→22:00)
[2018-07-16] MEDS: ALBUTEROL SULF 2.5 MG/0.5ML(0.5%) NEB SOLN NEB PRN (14:20)
[2018-07-16] MEDS: guaiFENesin-DM 100/10mg/5ml SYR PO PRN ×2 (15:53→20:04)
[2018-07-16] MEDS: ATORVASTATIN 20 MG TAB PO SCH (21:30)
[2018-07-17] VITALS: BP 128/65
[2018-07-17 04:00] VITALS: BP 104/69
[2018-07-17 05:09] LABS: Basophils # (auto) 0 uL; Eosinophils # (auto) 0.2 uL; Hemoglobin 12.2 g/dL (13.5-17.5)
[2018-07-17 05:11] LABS: Basophils % (auto) 0.4 % (0.0-2.0); Eosinophils % (auto) 2.6 % (0.0-7.0); Hematocrit 37.2 % (41.0-53.0); Lymphocytes # (auto) 0.9 uL; Mean Corpuscular Hgb Conc. 32.8 g/dL (32.0-36.0); Mean Corpuscular Volume 103.5 fL (80.0-100.0); Monocytes # (auto) 0.8 uL; Neutrophils # (auto) 4.3 uL; Nucleated Red Blood Cells % 0.1 %; Platelet Count (auto) 208 10^3/uL (140-450); Red Cell Distribution Width 14.1 % (11.8-14.3); White Blood Cell 6.2 10^3/uL (4.4-10.8)
[2018-07-17 05:21] LABS: Albumin 2.2 g/dL (3.4-5.0); BUN/Creatinine Ratio 8.8; Calcium 7.7 mg/dL (8.5-10.1); Potassium 3.2 mmol/L (3.5-5.1)
[2018-07-17 05:23] LABS: Bilirubin, Total 0.7 mg/dL (0.2-1.0); Total Protein 6.3 g/dL (6.4-8.2)
[2018-07-17] MEDS: IPRATROPIUM BROM 0.5 MG/2.5ML INH SOL NEB SCH ×4 (05:59→18:56)
[2018-07-17] MEDS: InsuLIN REG 1unit/0.01ml Soln (100units/ml) SC SCH ×3 (06:00→17:41)
[2018-07-17] MEDS: ACCU-CHEK COMFORT CURVE STRIP VI SCH ×3 (06:00→17:41)
[2018-07-17] MEDS: PIPERACILLIN-TAZOB 3.375GM 100 ML IV SCH ×3 (06:00→17:56)
[2018-07-17] MEDS: FUROSEMIDE 20 MG/2 ML VIAL IV SCH ×2 (06:00→17:56)
[2018-07-17 07:50] VITALS: BP 109/68
[2018-07-17] MEDS: LACTULOSE 20Gm/30ML SOLN PO SCH ×2 (09:52→22:00)
[2018-07-17] MEDS ORDERED: POTASSIUM CHL 20 Meq TABLET PO SCH (10:00)
[2018-07-17] MEDS: FLUCONAZOLE 200MG/100ML 100 ML IV SCH ×2 (10:18→11:28)
[2018-07-17] MEDS: FAMOTIDINE 20 MG TAB PO SCH ×2 (10:18→22:09)
[2018-07-17] MEDS: AMIODARONE HCL 200 MG TAB PO SCH ×2 (10:18→22:09)
[2018-07-17] MEDS: ASPirin 81 mg TAB PO SCH (10:19)
[2018-07-17] MEDS: LORATADINE 10 MG TAB PO SCH (10:19)
[2018-07-17] MEDS: QUEtiapine FUMARATE 25 MG TAB PO SCH ×2 (10:19→22:09)
[2018-07-17] MEDS: ENOXAPARIN SOD 40 MG/0.4 ML SYRINGE SC SCH (10:19)
[2018-07-17] MEDS: SPIRONOLACTONE 25 MG TAB PO SCH (10:20)
[2018-07-17] MEDS: SACUBITRIL-VALSARTAN 24mg/26mg TAB PO SCH ×2 (10:24→22:09)
[2018-07-17 11:50] VITALS: BP 101/68
[2018-07-17] MEDS: THIAMINE INJ 100 MG, MULTIPLE VITAMIN 10 ML, FOLIC ACID 1 MG, MAGNESIUM SULF SDV 50% 8 ... IV SCH ×5 (11:54)
[2018-07-17 15:41] VITALS: BP 109/58
[2018-07-17] MEDS: DOBUTamine 1000MCG/ML 250 ML IV SCH (18:12)
[2018-07-17] MEDS: ALBUTEROL SULF 2.5 MG/0.5ML(0.5%) NEB SOLN NEB PRN (18:56)
[2018-07-17 19:50] VITALS: BP 116/87
[2018-07-17] MEDS: ATORVASTATIN 20 MG TAB PO SCH (22:09)
[2018-07-17] MEDS: guaiFENesin-DM 100/10mg/5ml SYR PO PRN (22:44)
[2018-07-18] VITALS (7 sets, daily range): BP systolic 99–140; BP diastolic 42–74
[2018-07-18 05:05] LABS: Basophils # (auto) 0 uL; Basophils % (auto) 0.6 % (0.0-2.0); Eosinophils # (auto) 0.1 uL; Eosinophils % (auto) 2.3 % (0.0-7.0); Lymphocytes # (auto) 1.1 uL; Monocytes # (auto) 0.7 uL; Red Blood Cells 3.61 10^6/uL (4.5-5.90); Red Cell Distribution Width 14.3 % (11.8-14.3); White Blood Cell 5.8 10^3/uL (4.4-10.8)
[2018-07-18 05:07] LABS: Hemoglobin 12.2 g/dL (13.5-17.5); Lymphocytes % (auto) 18.6 % (10.0-50.0); Mean Corpuscular Hemoglobin 33.9 pg (28.0-32.0); Mean Corpuscular Volume 102.6 fL (80.0-100.0); Monocytes % (auto) 11.6 % (0.0-12.0); Neutrophils # (auto) 3.9 uL; Neutrophils % (auto) 66.9 % (37.0-80.0); Nucleated Red Blood Cells % 0.3 %; Platelet Count (auto) 228 10^3/uL (140-450)
[2018-07-18 05:23] LABS: Albumin 2.2 g/dL (3.4-5.0); BUN/Creatinine Ratio 9.1; Calcium 7.6 mg/dL (8.5-10.1); Potassium 3.3 mmol/L (3.5-5.1)
[2018-07-18 05:25] LABS: Bilirubin, Total 0.8 mg/dL (0.2-1.0); Total Protein 6.4 g/dL (6.4-8.2)
[2018-07-18] MEDS: InsuLIN REG 1unit/0.01ml Soln (100units/ml) SC SCH ×5 (06:00→22:04)
[2018-07-18] MEDS: IPRATROPIUM BROM 0.5 MG/2.5ML INH SOL NEB SCH ×4 (06:01→18:14)
[2018-07-18] MEDS: FUROSEMIDE 20 MG/2 ML VIAL IV SCH ×2 (06:19→17:54)
[2018-07-18] MEDS: PIPERACILLIN-TAZOB 3.375GM 100 ML IV SCH ×5 (06:19→22:03)
[2018-07-18] MEDS: ACCU-CHEK COMFORT CURVE STRIP VI SCH ×5 (06:20→22:04)
[2018-07-18] MEDS ORDERED: POTASSIUM CHL 20 Meq TABLET PO ONE (07:30)
[2018-07-18] MEDS: LACTULOSE 20Gm/30ML SOLN PO SCH ×2 (09:35→20:24)
[2018-07-18] MEDS: FLUCONAZOLE 200MG/100ML 100 ML IV SCH ×2 (09:41→10:40)
[2018-07-18] MEDS: SPIRONOLACTONE 25 MG TAB PO SCH (09:41)
[2018-07-18] MEDS: ASPirin 81 mg TAB PO SCH (09:42)
[2018-07-18] MEDS: FAMOTIDINE 20 MG TAB PO SCH ×2 (09:42→20:30)
[2018-07-18] MEDS: LORATADINE 10 MG TAB PO SCH (09:42)
[2018-07-18] MEDS: AMIODARONE HCL 200 MG TAB PO SCH ×2 (09:42→20:29)
[2018-07-18] MEDS: QUEtiapine FUMARATE 25 MG TAB PO SCH ×2 (09:42→20:30)
[2018-07-18] MEDS: ENOXAPARIN SOD 40 MG/0.4 ML SYRINGE SC SCH (09:43)
[2018-07-18] MEDS: SACUBITRIL-VALSARTAN 24mg/26mg TAB PO SCH ×2 (10:36→20:31)
[2018-07-18] MEDS: THIAMINE INJ 100 MG, MULTIPLE VITAMIN 10 ML, FOLIC ACID 1 MG, MAGNESIUM SULF SDV 50% 8 ... IV SCH ×5 (12:14)
[2018-07-18] MEDS: ALBUTEROL SULF 2.5 MG/0.5ML(0.5%) NEB SOLN NEB PRN ×2 (14:13→18:13)
[2018-07-18] MEDS: ATORVASTATIN 20 MG TAB PO SCH (20:30)
[2018-07-18] MEDS: guaiFENesin-DM 100/10mg/5ml SYR PO PRN (22:26)
[2018-07-18] MEDS: TEMAZEPAM 15 MG CAP PO PRN (22:26)
[2018-07-19 01:50] VITALS: BP 112/73
[2018-07-19 03:55] VITALS: BP 101/61
[2018-07-19] MEDS: FUROSEMIDE 20 MG/2 ML VIAL IV SCH ×2 (05:09→17:56)
[2018-07-19] MEDS: PIPERACILLIN-TAZOB 3.375GM 100 ML IV SCH ×4 (05:10→23:45)
[2018-07-19] MEDS: InsuLIN REG 1unit/0.01ml Soln (100units/ml) SC SCH ×4 (05:21→23:46)
[2018-07-19] MEDS: ACCU-CHEK COMFORT CURVE STRIP VI SCH ×4 (05:21→23:45)
[2018-07-19 06:04] LABS: Basophils # (auto) 0 uL; Basophils % (auto) 0.4 % (0.0-2.0); Eosinophils # (auto) 0.1 uL; Eosinophils % (auto) 0.9 % (0.0-7.0); Lymphocytes # (auto) 1.1 uL; Neutrophils # (auto) 6.1 uL
[2018-07-19 06:07] LABS: Hemoglobin 12.7 g/dL (13.5-17.5); Lymphocytes % (auto) 13.8 % (10.0-50.0); Mean Corpuscular Hemoglobin 34.7 pg (28.0-32.0); Mean Corpuscular Hgb Conc. 33.5 g/dL (32.0-36.0); Mean Corpuscular Volume 103.7 fL (80.0-100.0); Monocytes # (auto) 0.7 uL; Monocytes % (auto) 9.1 % (0.0-12.0); Neutrophils % (auto) 75.8 % (37.0-80.0); Nucleated Red Blood Cells % 0.1 %; Platelet Count (auto) 246 10^3/uL (140-450); Red Blood Cells 3.67 10^6/uL (4.5-5.90); Red Cell Distribution Width 14.6 % (11.8-14.3); White Blood Cell 8.1 10^3/uL (4.4-10.8)
[2018-07-19] MEDS: ALBUTEROL SULF 2.5 MG/0.5ML(0.5%) NEB SOLN NEB PRN ×3 (06:23→15:38)
[2018-07-19] MEDS: IPRATROPIUM BROM 0.5 MG/2.5ML INH SOL NEB SCH ×4 (06:23→20:58)
[2018-07-19 06:27] LABS: Potassium 3.9 mmol/L (3.5-5.1)
[2018-07-19 06:34] LABS: Albumin 2.3 g/dL (3.4-5.0); BUN/Creatinine Ratio 9.7; Bilirubin, Total 0.6 mg/dL (0.2-1.0); Calcium 7.7 mg/dL (8.5-10.1); Total Protein 6.8 g/dL (6.4-8.2)
[2018-07-19 07:50] VITALS: BP 104/71
[2018-07-19] MEDS: FLUCONAZOLE 200MG/100ML 100 ML IV SCH ×2 (09:50→11:00)
[2018-07-19] MEDS: QUEtiapine FUMARATE 25 MG TAB PO SCH ×2 (09:51→22:11)
[2018-07-19] MEDS: FAMOTIDINE 20 MG TAB PO SCH ×2 (09:51→22:11)
[2018-07-19] MEDS: POTASSIUM CHL 10 Meq TABLET PO SCH (09:51)
[2018-07-19] MEDS: AMIODARONE HCL 200 MG TAB PO SCH ×2 (09:51→22:11)
[2018-07-19] MEDS: ASPirin 81 mg TAB PO SCH (09:51)
[2018-07-19] MEDS: SPIRONOLACTONE 25 MG TAB PO SCH (09:52)
[2018-07-19] MEDS: LACTULOSE 20Gm/30ML SOLN PO SCH ×2 (09:52→22:12)
[2018-07-19] MEDS: ENOXAPARIN SOD 40 MG/0.4 ML SYRINGE SC SCH (09:52)
[2018-07-19] MEDS: LORATADINE 10 MG TAB PO SCH (09:52)
[2018-07-19] MEDS: SACUBITRIL-VALSARTAN 24mg/26mg TAB PO SCH ×2 (09:58→22:10)
[2018-07-19] MEDS: HYDROcodone-ACET 5/325MG TAB PO PRN (10:51)
[2018-07-19] MEDS: THIAMINE INJ 100 MG, MULTIPLE VITAMIN 10 ML, FOLIC ACID 1 MG, MAGNESIUM SULF SDV 50% 8 ... IV SCH ×5 (12:00)
[2018-07-19] MEDS: HYDROmorphone HCL 2 MG/ML VL IV PRN ×3 (13:20→18:53)
[2018-07-19 20:00] VITALS: BP 95/56
[2018-07-19] MEDS: guaiFENesin-DM 100/10mg/5ml SYR PO PRN (20:39)
[2018-07-19 22:00] VITALS: BP 91/56
[2018-07-19] MEDS: ATORVASTATIN 20 MG TAB PO SCH (22:11)
[2018-07-19] MEDS: TEMAZEPAM 15 MG CAP PO PRN (22:11)
[2018-07-20] VITALS (7 sets, daily range): BP systolic 89–127; BP diastolic 57–87
[2018-07-20] MEDS: PIPERACILLIN-TAZOB 3.375GM 100 ML IV SCH ×4 (05:53→23:59)
[2018-07-20] MEDS: FUROSEMIDE 20 MG/2 ML VIAL IV SCH ×2 (05:54→17:41)
[2018-07-20] MEDS: InsuLIN REG 1unit/0.01ml Soln (100units/ml) SC SCH ×4 (05:54→23:59)
[2018-07-20] MEDS: ACCU-CHEK COMFORT CURVE STRIP VI SCH ×3 (05:54→17:41)
[2018-07-20 06:22] LABS: Basophils # (auto) 0 uL; Basophils % (auto) 0.4 % (0.0-2.0); Eosinophils # (auto) 0.1 uL; Eosinophils % (auto) 1.9 % (0.0-7.0); Hematocrit 38.7 % (41.0-53.0); Lymphocytes % (auto) 13.9 % (10.0-50.0); Mean Corpuscular Hemoglobin 34.7 pg (28.0-32.0); Mean Corpuscular Hgb Conc. 33.5 g/dL (32.0-36.0); Mean Corpuscular Volume 103.6 fL (80.0-100.0); Monocytes # (auto) 0.8 uL; Monocytes % (auto) 11.1 % (0.0-12.0); Neutrophils % (auto) 72.7 % (37.0-80.0); Nucleated Red Blood Cells % 0.2 %; Platelet Count (auto) 255 10^3/uL (140-450); Red Blood Cells 3.74 10^6/uL (4.5-5.90); Red Cell Distribution Width 14.4 % (11.8-14.3); White Blood Cell 6.9 10^3/uL (4.4-10.8)
[2018-07-20] MEDS: IPRATROPIUM BROM 0.5 MG/2.5ML INH SOL NEB SCH ×4 (06:23→19:05)
[2018-07-20 06:34] LABS: Potassium 3.9 mmol/L (3.5-5.1)
[2018-07-20 06:44] LABS: Albumin 2.4 g/dL (3.4-5.0); BUN/Creatinine Ratio 12.7; Calcium 8.1 mg/dL (8.5-10.1)
[2018-07-20 06:46] LABS: Bilirubin, Total 0.5 mg/dL (0.2-1.0); Total Protein 6.8 g/dL (6.4-8.2)
[2018-07-20] MEDS: HYDROmorphone HCL 2 MG/ML VL IV PRN (07:29)
[2018-07-20] MEDS: SACUBITRIL-VALSARTAN 24mg/26mg TAB PO SCH ×2 (10:00→22:02)
[2018-07-20] MEDS: AMIODARONE HCL 200 MG TAB PO SCH ×2 (10:00→22:02)
[2018-07-20] MEDS: LACTULOSE 20Gm/30ML SOLN PO SCH ×2 (10:09→22:01)
[2018-07-20] MEDS: ENOXAPARIN SOD 40 MG/0.4 ML SYRINGE SC SCH (10:09)
[2018-07-20] MEDS: FLUCONAZOLE 200MG/100ML 100 ML IV SCH ×2 (10:10→11:00)
[2018-07-20] MEDS: QUEtiapine FUMARATE 25 MG TAB PO SCH ×2 (10:10→22:02)
[2018-07-20] MEDS: POTASSIUM CHL 10 Meq TABLET PO SCH (10:10)
[2018-07-20] MEDS: ASPirin 81 mg TAB PO SCH (10:10)
[2018-07-20] MEDS: FAMOTIDINE 20 MG TAB PO SCH ×2 (10:10→22:02)
[2018-07-20] MEDS: SPIRONOLACTONE 25 MG TAB PO SCH (10:10)
[2018-07-20] MEDS: LORATADINE 10 MG TAB PO SCH (10:10)
[2018-07-20] MEDS: THIAMINE INJ 100 MG, MULTIPLE VITAMIN 10 ML, FOLIC ACID 1 MG, MAGNESIUM SULF SDV 50% 8 ... IV SCH ×5 (12:00)
[2018-07-20] MEDS: HYDROcodone-ACET 10/325MG TAB PO PRN ×2 (15:00→18:55)
[2018-07-20] MEDS: LORazepam 2MG/ML-1ML VIAL IV PRN (15:30)
[2018-07-20] MEDS: MEPERIDINE HCL (50 MG/ML) 1 ML VIAL IV PRN ×2 (15:31→18:55)
[2018-07-20] MEDS: ATORVASTATIN 20 MG TAB PO SCH (22:02)
[2018-07-20] MEDS: TEMAZEPAM 15 MG CAP PO PRN (22:02)
[2018-07-21] MEDS: ACCU-CHEK COMFORT CURVE STRIP VI SCH ×5 (00:08→23:52)
[2018-07-21] MEDS: LORazepam 2MG/ML-1ML VIAL IV PRN (02:12)
[2018-07-21] MEDS: ALBUTEROL SULF 2.5 MG/0.5ML(0.5%) NEB SOLN NEB PRN (02:27)
[2018-07-21 05:00] VITALS: BP 99/66
[2018-07-21] MEDS: FUROSEMIDE 20 MG/2 ML VIAL IV SCH ×2 (05:50→18:24)
[2018-07-21] MEDS: PIPERACILLIN-TAZOB 3.375GM 100 ML IV SCH ×4 (05:51→23:03)
[2018-07-21] MEDS: InsuLIN REG 1unit/0.01ml Soln (100units/ml) SC SCH ×4 (05:51→23:52)
[2018-07-21 06:45] LABS: INR 1.11 (0.9-1.15); Partial Thromboplastin Time 29.2 sec (23.78-33.04); Prothrombin Time 11.8 sec (9.27-12.13)
[2018-07-21] MEDS: IPRATROPIUM BROM 0.5 MG/2.5ML INH SOL NEB SCH ×4 (07:10→18:25)
[2018-07-21] MEDS: MEPERIDINE HCL (50 MG/ML) 1 ML VIAL IV PRN ×7 (07:30→18:00)
[2018-07-21 08:38] VITALS: BP 96/61
[2018-07-21] MEDS: HYDROcodone-ACET 10/325MG TAB PO PRN ×2 (09:26→12:47)
[2018-07-21] MEDS: QUEtiapine FUMARATE 25 MG TAB PO SCH ×2 (09:43→21:39)
[2018-07-21] MEDS: FAMOTIDINE 20 MG TAB PO SCH ×2 (09:44→21:38)
[2018-07-21] MEDS: FLUCONAZOLE 200MG/100ML 100 ML IV SCH ×2 (09:45→11:00)
[2018-07-21] MEDS: Glucerna Carbsteady SHAKE Vanilla 8oz PO SCH ×2 (09:45→18:00)
[2018-07-21] MEDS: SPIRONOLACTONE 25 MG TAB PO SCH (09:46)
[2018-07-21] MEDS: LORATADINE 10 MG TAB PO SCH (09:46)
[2018-07-21] MEDS: ASPirin 81 mg TAB PO SCH (09:46)
[2018-07-21] MEDS: AMIODARONE HCL 200 MG TAB PO SCH ×2 (09:47→21:38)
[2018-07-21] MEDS: SACUBITRIL-VALSARTAN 24mg/26mg TAB PO SCH ×2 (09:47→22:11)
[2018-07-21] MEDS: POTASSIUM CHL 10 Meq TABLET PO SCH (09:48)
[2018-07-21] MEDS: LACTULOSE 20Gm/30ML SOLN PO SCH ×2 (10:00→21:38)
[2018-07-21] MEDS: THIAMINE INJ 100 MG, MULTIPLE VITAMIN 10 ML, FOLIC ACID 1 MG, MAGNESIUM SULF SDV 50% 8 ... IV SCH ×5 (12:00)
[2018-07-21] MEDS ORDERED: ceFAZolin 1GM/50ML 50 ML IV ONE (12:25)
[2018-07-21] MEDS ORDERED: IODIXANOL 320MG/ML 100ML BTL IV ONE (12:29)
[2018-07-21] MEDS ORDERED: LIDOCAINE 2%HCL (LOCAL ANESTH.) INJ 20ML MDV ONE (12:29)
[2018-07-21] MEDS ORDERED: VANCOMYCIN HCL 1000 MG VL ONE (12:54)
[2018-07-21] MEDS ORDERED: fentaNYL CITRATE 100 MCG/2 ML VL ONE (12:55)
[2018-07-21] MEDS ORDERED: VANCOMYCIN 1GM/250ML 250 ML IV ONE (12:55)
[2018-07-21] MEDS ORDERED: MIDAZOLAM HCL 1MG/1ML-2 ML VIAL ONE (12:55)
[2018-07-21] MEDS ORDERED: FUROSEMIDE 20 MG/2 ML VIAL ONE (13:27)
[2018-07-21] MEDS ORDERED: LIDOCAINE W/ EPINEPHRINE 2% INJ 20ML VIAL ONE (14:09)
[2018-07-21 17:30] VITALS: BP 109/71
[2018-07-21 20:00] VITALS: BP 138/93
[2018-07-21 20:44] VITALS: BP 138/93
[2018-07-21 20:56] VITALS: BP 138/93
[2018-07-21] MEDS: ATORVASTATIN 20 MG TAB PO SCH (21:38)
[2018-07-21] MEDS: guaiFENesin-DM 100/10mg/5ml SYR PO PRN (21:38)
[2018-07-21] MEDS: TEMAZEPAM 15 MG CAP PO PRN (21:38)
[2018-07-21] MEDS ORDERED: VANCOMYCIN 1GM/250ML 250 ML IV SCH (22:00)
[2018-07-22] MEDS: MEPERIDINE HCL (50 MG/ML) 1 ML VIAL IV PRN (02:07)
[2018-07-22] MEDS: guaiFENesin-DM 100/10mg/5ml SYR PO PRN ×2 (03:26→20:46)
[2018-07-22 05:24] VITALS: BP 101/62
[2018-07-22] MEDS: PIPERACILLIN-TAZOB 3.375GM 100 ML IV SCH ×4 (05:46→23:15)
[2018-07-22] MEDS: ACCU-CHEK COMFORT CURVE STRIP VI SCH ×4 (05:56→23:16)
[2018-07-22] MEDS: FUROSEMIDE 20 MG/2 ML VIAL IV SCH (05:56)
[2018-07-22] MEDS: InsuLIN REG 1unit/0.01ml Soln (100units/ml) SC SCH ×4 (05:56→23:15)
[2018-07-22] MEDS: IPRATROPIUM BROM 0.5 MG/2.5ML INH SOL NEB SCH ×4 (06:27→20:02)
[2018-07-22] MEDS: Glucerna Carbsteady SHAKE Vanilla 8oz PO SCH ×2 (08:00→18:14)
[2018-07-22 09:00] VITALS: BP 107/65
[2018-07-22] MEDS: ASPirin 81 mg TAB PO SCH (10:00)
[2018-07-22] MEDS: QUEtiapine FUMARATE 25 MG TAB PO SCH (10:00)
[2018-07-22] MEDS: SACUBITRIL-VALSARTAN 24mg/26mg TAB PO SCH ×2 (10:00→21:54)
[2018-07-22] MEDS: SPIRONOLACTONE 25 MG TAB PO SCH (10:00)
[2018-07-22] MEDS: FLUCONAZOLE 200MG/100ML 100 ML IV SCH ×2 (10:47→11:00)
[2018-07-22] MEDS: AMIODARONE HCL 200 MG TAB PO SCH ×2 (10:48→21:54)
[2018-07-22] MEDS: POTASSIUM CHL 10 Meq TABLET PO SCH (10:49)
[2018-07-22] MEDS: FAMOTIDINE 20 MG TAB PO SCH ×2 (10:51→21:54)
[2018-07-22] MEDS: LORATADINE 10 MG TAB PO SCH (10:51)
[2018-07-22] MEDS: LACTULOSE 20Gm/30ML SOLN PO SCH ×2 (10:52→21:55)
[2018-07-22] MEDS: THIAMINE INJ 100 MG, MULTIPLE VITAMIN 10 ML, FOLIC ACID 1 MG, MAGNESIUM SULF SDV 50% 8 ... IV SCH ×5 (12:16)
[2018-07-22 13:00] VITALS: BP 112/72
[2018-07-22 17:00] VITALS: BP 112/70
[2018-07-22] MEDS: HYDROcodone-ACET 10/325MG TAB PO PRN (20:46)
[2018-07-22] MEDS: ATORVASTATIN 20 MG TAB PO SCH (21:54)
[2018-07-22 22:00] VITALS: BP 109/70
[2018-07-23] MEDS: TEMAZEPAM 15 MG CAP PO PRN ×2 (00:50→21:22)
[2018-07-23 04:38] VITALS: BP 104/74
[2018-07-23] MEDS: PIPERACILLIN-TAZOB 3.375GM 100 ML IV SCH ×4 (05:10→23:11)
[2018-07-23] MEDS: InsuLIN REG 1unit/0.01ml Soln (100units/ml) SC SCH ×4 (05:11→23:22)
[2018-07-23] MEDS: ACCU-CHEK COMFORT CURVE STRIP VI SCH ×4 (05:11→23:23)
[2018-07-23] MEDS: IPRATROPIUM BROM 0.5 MG/2.5ML INH SOL NEB SCH ×4 (06:41→19:40)
[2018-07-23] MEDS: Glucerna Carbsteady SHAKE Vanilla 8oz PO SCH ×2 (08:00→18:00)
[2018-07-23 09:07] VITALS: BP 106/68
[2018-07-23] MEDS: LACTULOSE 20Gm/30ML SOLN PO SCH ×2 (09:51→21:26)
[2018-07-23] MEDS: POTASSIUM CHL 10 Meq TABLET PO SCH (09:54)
[2018-07-23] MEDS: FLUCONAZOLE 200MG/100ML 100 ML IV SCH ×2 (09:54→11:00)
[2018-07-23] MEDS: FAMOTIDINE 20 MG TAB PO SCH ×2 (09:54→21:22)
[2018-07-23] MEDS: LORATADINE 10 MG TAB PO SCH (09:54)
[2018-07-23] MEDS: ASPirin 81 mg TAB PO SCH (09:54)
[2018-07-23] MEDS: SACUBITRIL-VALSARTAN 24mg/26mg TAB PO SCH ×2 (09:54→21:26)
[2018-07-23] MEDS: AMIODARONE HCL 200 MG TAB PO SCH ×2 (09:54→21:22)
[2018-07-23] MEDS: THIAMINE INJ 100 MG, MULTIPLE VITAMIN 10 ML, FOLIC ACID 1 MG, MAGNESIUM SULF SDV 50% 8 ... IV SCH ×5 (12:00)
[2018-07-23 13:00] VITALS: BP 120/82
[2018-07-23] MEDS: guaiFENesin-DM 100/10mg/5ml SYR PO PRN (17:50)
[2018-07-23 21:16] VITALS: BP 105/71
[2018-07-23] MEDS: ATORVASTATIN 20 MG TAB PO SCH (21:22)
[2018-07-23] MEDS ORDERED: SODIUM BICARBONATE 8.4% INJ 50ML SYRINGE ONE (22:28)
[2018-07-24] MEDS: HYDROcodone-ACET 10/325MG TAB PO PRN (02:48)
[2018-07-24 04:00] VITALS: BP 117/86
[2018-07-24] MEDS: guaiFENesin-DM 100/10mg/5ml SYR PO PRN (05:13)
[2018-07-24] MEDS: PIPERACILLIN-TAZOB 3.375GM 100 ML IV SCH ×3 (05:13→12:27)
[2018-07-24] MEDS: ACCU-CHEK COMFORT CURVE STRIP VI SCH ×2 (05:19→12:27)
[2018-07-24] MEDS: InsuLIN REG 1unit/0.01ml Soln (100units/ml) SC SCH ×2 (05:19→12:00)
[2018-07-24] MEDS: IPRATROPIUM BROM 0.5 MG/2.5ML INH SOL NEB SCH ×3 (05:53→14:17)
[2018-07-24 07:56] VITALS: BP 111/77
[2018-07-24] MEDS: Glucerna Carbsteady SHAKE Vanilla 8oz PO SCH (08:00)
[2018-07-24] MEDS: FLUCONAZOLE 200MG/100ML 100 ML IV SCH ×2 (09:47→11:00)
[2018-07-24] MEDS: AMIODARONE HCL 200 MG TAB PO SCH (09:47)
[2018-07-24] MEDS: POTASSIUM CHL 10 Meq TABLET PO SCH (09:47)
[2018-07-24] MEDS: FAMOTIDINE 20 MG TAB PO SCH (09:47)
[2018-07-24] MEDS: SACUBITRIL-VALSARTAN 24mg/26mg TAB PO SCH (09:47)
[2018-07-24] MEDS: ASPirin 81 mg TAB PO SCH (09:47)
[2018-07-24] MEDS: LORATADINE 10 MG TAB PO SCH (09:47)
[2018-07-24] MEDS: LACTULOSE 20Gm/30ML SOLN PO SCH (09:48)
[2018-07-24 11:47] VITALS: BP 118/79
[2018-07-24 15:49] VITALS: BP 118/79
[2018-07-31] MEDS ORDERED: LOSA25TA40 PO (18:25)
[2018-07-31] MEDS ORDERED: GABA300C10 PO (18:25)
[2018-08-02] MEDS ORDERED: SACU1TAB PO (13:42)
[2018-08-02] MEDS ORDERED: CAR3125T OR (13:42)
[2018-08-02] MEDS ORDERED: AMIO200T33 PO (13:42)
== END 2018-07-24 17:30 | disposition home health service (06) | DRG 226 ==
LOC: ER 15:17 → OVERFLOW 15:18 → DOU IN ICU 07-09 06:40 → ICU WEST 07-10 13:20 → DOU IN ICU 07-14 18:00 → TELE-WESTW 07-19 10:49
PROVIDERS: ADMIT Nurse Practitioner; ATTEND Family Medicine
PROC: 0W9930Z Drainage of Right Pleural Cavity with Drainage Device, Percutaneous Approach (ICD-10-PCS; 2018-07-09)
PROC: 0BH17EZ Insertion of Endotracheal Airway into Trachea, Via Natural or Artificial Opening (ICD-10-PCS; 2018-07-10)
PROC: 5A1945Z Respiratory Ventilation, 24-96 Consecutive Hours (ICD-10-PCS; 2018-07-10)
PROC: 02HV33Z Insertion of Infusion Device into Superior Vena Cava, Percutaneous Approach (ICD-10-PCS; 2018-07-10)
PROC: 0JH608Z Insertion of Defibrillator Generator into Chest Subcutaneous Tissue and Fascia, Open Approach (ICD-10-PCS; principal; 2018-07-21)
PROC: 02HK3KZ Insertion of Defibrillator Lead into Right Ventricle, Percutaneous Approach (ICD-10-PCS; 2018-07-21)
PROC: 02H63KZ Insertion of Defibrillator Lead into Right Atrium, Percutaneous Approach (ICD-10-PCS; 2018-07-21)
DX: I13.0 Hypertensive heart and chronic kidney disease with heart failure and stage 1 through stage 4 chronic kidney disease, or unspecified chronic kidney disease (principal); J96.21 Acute and chronic respiratory failure with hypoxia; J18.9 Pneumonia, unspecified organism; G93.41 Metabolic encephalopathy; I50.43 Acute on chronic combined systolic (congestive) and diastolic (congestive) heart failure; E72.20 Disorder of urea cycle metabolism, unspecified; J44.0 Chronic obstructive pulmonary disease with (acute) lower respiratory infection; J90 Pleural effusion, not elsewhere classified; I11.0 Hypertensive heart disease with heart failure; D63.8 Anemia in other chronic diseases classified elsewhere; E11.22 Type 2 diabetes mellitus with diabetic chronic kidney disease; E11.65 Type 2 diabetes mellitus with hyperglycemia; E78.00 Pure hypercholesterolemia, unspecified; E86.0 Dehydration; F17.210 Nicotine dependence, cigarettes, uncomplicated; I08.0 Rheumatic disorders of both mitral and aortic valves; I25.10 Atherosclerotic heart disease of native coronary artery without angina pectoris; I48.91 Unspecified atrial fibrillation; I49.3 Ventricular premature depolarization; I70.0 Atherosclerosis of aorta; K74.60 Unspecified cirrhosis of liver; M06.9 Rheumatoid arthritis, unspecified; M25.78 Osteophyte, vertebrae; I95.9 Hypotension, unspecified; M47.894 Other spondylosis, thoracic region; N18.9 Chronic kidney disease, unspecified; Z82.49 Family history of ischemic heart disease and other diseases of the circulatory system; Z91.19 Patient's noncompliance with other medical treatment and regimen; Z83.3 Family history of diabetes mellitus; Z87.442 Personal history of urinary calculi; Z95.810 Presence of automatic (implantable) cardiac defibrillator; Z79.82 Long term (current) use of aspirin
CPT/HCPCS: 32551; 33249; 36415; 36600; 70450; 71045; 71046; 71275; 76705; 80048; 80053; 80076; 82140; 82805; 82962; 83605; 83735; 83880; 83986; 84132; 84484; 85025; 85610; 85730; 86703; 86706; 86803; 86850; 86900; 86901; 87040; 87070; 87081; 87205; 87340; 89051; 93005; 93306; 94002; 94003; 94640; 94761; 96372; 96374; 96375; 96376; 97116; 99152; 99291; A6257; J0690; J0696; J1450; J1815; J2250; J2405; J2543; J2704; J3480; J7060; Q9967

== ENCOUNTER → 2018-08-31 | Outpatient (CLI) | payer MEDICARE, MEDICAID ==
[~2018-08-31] MED LIST changes: +AMIO200T33 PO; -ATOR20TA50 PO; -CAPT12.52 PO; +CAR3125T OR; -CARV6.2551 PO; -FLUO20CA19 PO; +GABA300C10 PO; +LOSA25TA40 PO; +SACU1TAB PO; -SPIR25TA8 PO; -TEMA15CA PO
[2018-08-31 16:21] LABS: Bilirubin, Direct 0.3 mg/dL (0-0.2)
[2018-08-31 16:24] LABS: Bilirubin, Total 0.6 mg/dL (0.2-1.0); Total Protein 7.7 g/dL (6.4-8.2)
== END | disposition home or self-care (01) ==
LOC: LAB 15:40
PROVIDERS: ATTEND Internal Medicine Gastroenterology
DX: B15.0 Hepatitis A with hepatic coma (principal)
CPT/HCPCS: 36415; 80076; 82140

== ENCOUNTER → 2018-12-07 | Outpatient (CLI) | payer OTHER, MEDICAID ==
[2018-12-07 11:56] LABS: Alkaline Phosphatase 327 U/L (45-117); Bilirubin, Direct < 0.1 mg/dL (0-0.2); Bilirubin, Total 0.9 mg/dL (0.2-1.0); Total Protein 8.7 g/dL (6.4-8.2)
[2018-12-07 12:00] LABS: Alanine Aminotransferase 32 U/L (16-61); Aspartate Aminotransferase 60 U/L (15-37)
== END | disposition home or self-care (01) ==
LOC: LAB 10:46
PROVIDERS: ATTEND Internal Medicine Gastroenterology
DX: R94.5 Abnormal results of liver function studies (principal); R79.89 Other specified abnormal findings of blood chemistry
CPT/HCPCS: 36415; 80076; 82140

== ENCOUNTER → 2019-01-15 | Outpatient (CLI) | payer MEDICARE, MEDICAID | END | disposition home or self-care (01) | LOC: Rad HDHVI 10:01 | PROVIDERS: ATTEND Internal Medicine Cardiovascular Disease | DX: I08.8 Other rheumatic multiple valve diseases (principal); J43.9 Emphysema, unspecified; J90 Pleural effusion, not elsewhere classified; D71 Functional disorders of polymorphonuclear neutrophils; I25.10 Atherosclerotic heart disease of native coronary artery without angina pectoris; I27.20 Pulmonary hypertension, unspecified; I11.0 Hypertensive heart disease with heart failure; I50.9 Heart failure, unspecified; E11.9 Type 2 diabetes mellitus without complications | CPT/HCPCS: 71250; 93306 ==

== ENCOUNTER → 2019-03-12 | Outpatient (CLI) | payer MEDICARE, MEDICAID ==
[2019-03-12 14:57] LABS: Albumin 3.1 g/dL (3.4-5.0); Bilirubin, Direct 0.2 mg/dL (0-0.2)
[2019-03-12 14:59] LABS: Bilirubin, Total 0.6 mg/dL (0.2-1.0); Total Protein 7.2 g/dL (6.4-8.2)
== END | disposition home or self-care (01) ==
LOC: LAB 14:18
PROVIDERS: ATTEND Internal Medicine Gastroenterology
DX: R94.5 Abnormal results of liver function studies (principal)
CPT/HCPCS: 36415; 80076

== ENCOUNTER 2019-07-29 15:34 | Inpatient (IN) | payer MEDICARE, MEDICAID ==
[~2019-07-29] VITALS: Ht 182.9 cm; Wt 82.0 kg
[~2019-07-29 15:34] MED LIST changes: +ASPI-404 PO; -ASPI81TA27 PO; +LOSA25TA38 PO; -LOSA25TA40 PO; +ONDA-144 PO; -ONDA4TAB5 PO; +POTA-220 PO; -POTA20TA53 PO
[2019-07-29] MEDS ORDERED: ONDANSETRON HCL 4 MG/2 ML VIAL IV ONE (16:30)
[2019-07-29] MEDS ORDERED: MORPHINE SULF INJ 2 MG/ML SYRINGE 1ML IV ONE (16:30)
[2019-07-29] MEDS ORDERED: ASPirin 81 mg TAB PO ONE (16:30)
[2019-07-29 17:00] LABS: Albumin 3.5 g/dL (3.4-5.0); BUN/Creatinine Ratio 24.1; Calcium 8.9 mg/dL (8.5-10.1); Magnesium 2.2 mg/dL (1.6-2.6); Potassium 5.4 mmol/L (3.5-5.1)
[2019-07-29 17:04] LABS: Bilirubin, Total 0.7 mg/dL (0.2-1.0); Total Protein 7.7 g/dL (6.4-8.2)
[2019-07-29 17:06] LABS: INR 1.06 (0.9-1.15); Partial Thromboplastin Time 26.4 sec (23.64-32.05)
[2019-07-29 17:07] LABS: Basophils # (auto) 0.1 uL; Eosinophils # (auto) 0.1 uL; Hemoglobin 13.1 g/dL (13.5-17.5); Monocytes # (auto) 0.5 uL; Neutrophils # (auto) 3.4 uL; Red Cell Distribution Width 14.4 % (11.8-14.3); White Blood Cell 4.9 10^3/uL (4.4-10.8)
[2019-07-29 17:09] LABS: Basophils % (auto) 2.3 % (0.0-2.0); Eosinophils % (auto) 1.3 % (0.0-7.0); Hematocrit 38.2 % (41.0-53.0); Lymphocytes # (auto) 0.8 uL; Lymphocytes % (auto) 16.6 % (10.0-50.0); Mean Corpuscular Hemoglobin 34.9 pg (28.0-32.0); Mean Corpuscular Hgb Conc. 34.2 g/dL (32.0-36.0); Monocytes % (auto) 11.2 % (0.0-12.0); Neutrophils % (auto) 68.6 % (37.0-80.0); Nucleated Red Blood Cells % 0.2 %; Platelet Count (auto) 198 10^3/uL (140-450); Red Blood Cells 3.75 10^6/uL (4.5-5.90)
[2019-07-29] MEDS ORDERED: PROMETHAZINE W/CODEINE 5 ML ORAL SYRUP PO ONE (17:15)
[2019-07-29] MEDS ORDERED: FUROSEMIDE 40 MG/4 ML VIAL IV ONE (19:00)
[2019-07-29] MEDS ORDERED: ONDANSETRON HCL 4 MG/2 ML VIAL IV PRN (19:45)
[2019-07-29] MEDS ORDERED: HYDROcodone-ACET 5/325MG TAB PO PRN (19:45)
[2019-07-29] MEDS ORDERED: NITROGLYCERIN 0.4 MG SL TAB SL PRN (19:45)
[2019-07-29] MEDS ORDERED: DEXTROSE (50%) 50ML SYRG IV PRN (19:45)
[2019-07-29] MEDS ORDERED: ACETAMINOPHEN 500 MG TAB PO PRN (19:45)
[2019-07-29] MEDS ORDERED: MORPHINE SULF INJ 2 MG/ML SYRINGE 1ML IV PRN ×2 (19:45)
[2019-07-29] MEDS ORDERED: CALCIUM GLUC 4.65meq/50ml D5AE 50 ML IV ONE (20:30)
[2019-07-29] MEDS ORDERED: SODIUM ZIRCONIUM CYCL 10 GM PAK PO ONE (20:30)
--- NOTE | 2019-07-29 20:40 | NUR ---
Telemetry admit from ER MOSHECHAS Aly admitted to Telemetry unit after SBAR received. Patient oriented to Rosalee Pineda, primary RN, unit, room, bed, and unit policies regarding patient care and visiting hours. Patient now on continuous telemetry monitoring, tele box #[id number] and telemetry reading on arrival to unit is SR99. Patient placed on bedside oxygen, weighed by bed scale and encouraged to call if they need something. All questions and concerns addressed, patient verbalized understanding.
[2019-07-29 21:00] VITALS: BP 84/52
[2019-07-29] MEDS ORDERED: cefTRIAXone 1GM/50ML D5W 50 ML IV SCH (21:00)
[2019-07-29] MEDS: GABAPENTIN 300 MG CAP PO SCH (21:42)
[2019-07-29] MEDS: AMIODARONE HCL 200 MG TAB PO SCH (21:46)
[2019-07-29] MEDS: ACCU-CHEK COMFORT CURVE STRIP VI SCH (21:55)
[2019-07-29] MEDS: InsuLIN REG 1unit/0.01ml Soln (100units/ml) SC SCH (21:55)
[2019-07-29] MEDS ORDERED: AZITHROMYCIN 500MG/ 250ML 250 ML IV SCH (22:00)
--- NOTE | 2019-07-29 22:32 | NUR ---
ROCEPHIN WAS ADMINISTERED AT THIS LATER TIME BECAUSE CALCIUM GLUCONATE WAS ADMINISTERED AT 2122.
--- NOTE | 2019-07-30 02:01 | NUR ---
PATIENT PULLED OUT IV. PRESSURE APPLIED TO SITE. CATHETER OUT COMPLETE AND INTACT. NEW IV 22 G INSERTED TO LEFT FOREARM. CATHETER SECURED. PATIENT TOLERATED WELL. INITIALED AND DATED.
--- NOTE | 2019-07-30 03:13 | NUR ---
ER DR ARREGUIN AWARE OF RUN OF VTACH AT 0230. EKG DONE AND SIGNED BY RODRÍGUEZ MIRELES.
--- NOTE | 2019-07-30 03:27 | NUR ---
ROUNDS PATIENT IS COMFORTABLE IN BED. EYES CLOSED, CHEST RISE AND FALL IS EVEN. NO S/SX OF DISTRESS, SOB OR PAIN. WILL CONTINUE TO MONITOR.
[2019-07-30 05:23] VITALS: BP 93/67
[2019-07-30] MEDS: InsuLIN REG 1unit/0.01ml Soln (100units/ml) SC SCH ×4 (05:52→21:58)
[2019-07-30] MEDS: ACCU-CHEK COMFORT CURVE STRIP VI SCH ×4 (05:53→21:58)
[2019-07-30 06:32] LABS: Basophils # (auto) 0 uL; Eosinophils # (auto) 0.1 uL; Eosinophils % (auto) 2.4 % (0.0-7.0); Lymphocytes # (auto) 0.9 uL; Neutrophils # (auto) 2.6 uL; Neutrophils % (auto) 60.7 % (37.0-80.0); Platelet Count (auto) 183 10^3/uL (140-450); Red Blood Cells 3.31 10^6/uL (4.5-5.90)
[2019-07-30 06:35] LABS: Basophils % (auto) 0.4 % (0.0-2.0); Hematocrit 33.7 % (41.0-53.0); Hemoglobin 11.6 g/dL (13.5-17.5); Lymphocytes % (auto) 21.1 % (10.0-50.0); Mean Corpuscular Hemoglobin 35.1 pg (28.0-32.0); Mean Corpuscular Hgb Conc. 34.5 g/dL (32.0-36.0); Mean Corpuscular Volume 101.8 fL (80.0-100.0); Monocytes # (auto) 0.7 uL; Monocytes % (auto) 15.4 % (0.0-12.0); Red Cell Distribution Width 14.5 % (11.8-14.3); White Blood Cell 4.3 10^3/uL (4.4-10.8)
[2019-07-30 06:59] LABS: Calcium 8.5 mg/dL (8.5-10.1)
--- NOTE | 2019-07-30 07:25 | NUR ---
HOSPITALIST ANA LAURA LAI IS AWARE OF LATEST CHEST XRAY READING. ORDERS RECEIVED.
--- NOTE | 2019-07-30 07:28 | NUR ---
CLOSING NOTE ENDORSED PATIENT CARE TO DAY SHIFT NURSE. NO S/SX OF DISTRESS, SOB OR PAIN.
--- NOTE | 2019-07-30 07:40 | NUR ---
Opening Shift Note Assumed care of patient, awake, alert, and oriented x4. No S/S of distress/SOB or pain. IV is in left forearm 22 gauge and is asymptomatic, intact, patent, and saline locked. Bed is locked and in lowest position and call light is within reach. Instructed on POC and to call for assist PRN, and patient verbalized understanding. Will continue to monitor for changes Q1hr and PRN.
[2019-07-30 08:31] VITALS: BP 90/55
[2019-07-30] MEDS: ASPirin-EC 81 mg tab PO SCH (09:00)
[2019-07-30] MEDS: AMIODARONE HCL 200 MG TAB PO SCH ×2 (09:01→21:57)
[2019-07-30] MEDS: FAMOTIDINE 20 MG TAB PO SCH (09:01)
[2019-07-30] MEDS ORDERED: CARVEDILOL 3.125 MG TAB PO SCH (10:00)
[2019-07-30] MEDS: FUROSEMIDE 40 MG/4 ML VIAL IV SCH (10:00)
[2019-07-30] MEDS ORDERED: SACUBITRIL-VALSARTAN 24mg/26mg TAB PO SCH (10:00)
--- NOTE | 2019-07-30 10:00 | NUR ---
Patient taken down to CT via wheelchair; no distress noted at time of departure.
--- NOTE | 2019-07-30 10:28 | NUR ---
Patient returned from CT via wheelchair; no distress noted at time of arrival. Will continue to monitor Q1.
[2019-07-30 12:30] VITALS: BP 149/95
--- NOTE | 2019-07-30 16:29 | NUR ---
Patient taken down to Radiology for Thoracentesis procedure via wheelchair; no distress noted at time of departure.
[2019-07-30 17:00] VITALS: BP 94/54
--- NOTE | 2019-07-30 17:00 | NUR ---
Patient returned from radiology via wheelchair; no distress noted at time of arrival. Will continue to monitor patient Q1.
[2019-07-30] MEDS: GABAPENTIN 300 MG CAP PO SCH (21:57)
[2019-07-30] MEDS ORDERED: cefTRIAXone 1GM/50ML D5W 50 ML IV SCH (23:00)
[2019-07-30 23:06] VITALS: BP 104/74
--- NOTE | 2019-07-30 23:32 | NUR ---
PATIENT REQUESTING SLEEPING AID, WILL PAGE HOSPITALIST.
[2019-07-31] MEDS: TEMAZEPAM 15 MG CAP PO PRN ×2 (00:37→21:36)
[2019-07-31 05:37] VITALS: BP 94/59
[2019-07-31] MEDS: ACCU-CHEK COMFORT CURVE STRIP VI SCH ×4 (06:21→20:33)
[2019-07-31] MEDS: InsuLIN REG 1unit/0.01ml Soln (100units/ml) SC SCH ×4 (06:21→20:00)
--- NOTE | 2019-07-31 07:50 | NUR ---
Patient talks a lot.
--- NOTE | 2019-07-31 07:53 | NUR ---
Laboratory called that K = 5.8. Laboratory will redraw blood to recheck the Potassium level.
[2019-07-31 08:30] VITALS: BP 105/66
[2019-07-31] MEDS: FAMOTIDINE 20 MG TAB PO SCH (09:31)
[2019-07-31] MEDS: AMIODARONE HCL 200 MG TAB PO SCH ×2 (09:31→21:36)
[2019-07-31] MEDS: FUROSEMIDE 40 MG/4 ML VIAL IV SCH (09:32)
[2019-07-31] MEDS: ASPirin-EC 81 mg tab PO SCH (09:32)
[2019-07-31 11:59] LABS: BUN/Creatinine Ratio 29.3; Calcium 8.6 mg/dL (8.5-10.1); Potassium 5.2 mmol/L (3.5-5.1)
[2019-07-31 12:30] VITALS: BP 102/68
--- NOTE | 2019-07-31 12:44 | NUR ---
Dr. Koo came over to see the patient. MD is aware of patient's elevated Potassium level. Patient on Lasix as ordered.
[2019-07-31] MEDS ORDERED: DEXTROSE (50%) 50ML SYRG IV PRN (14:45)
--- NOTE | 2019-07-31 15:00 | NUR ---
About 450 ml of clear drew urine emptied from the urinal.
[2019-07-31 15:31] LABS: Basophils # (auto) 0.1 uL; Basophils % (auto) 1.1 % (0.0-2.0); Eosinophils # (auto) 0.1 uL; Eosinophils % (auto) 1.2 % (0.0-7.0); Hematocrit 40.5 % (41.0-53.0); Lymphocytes # (auto) 1.4 uL; Mean Corpuscular Hemoglobin 33.9 pg (28.0-32.0); Mean Corpuscular Volume 105.8 fL (80.0-100.0); Monocytes # (auto) 0.6 uL; Neutrophils # (auto) 2.7 uL; Neutrophils % (auto) 56.7 % (37.0-80.0); Nucleated Red Blood Cells % 0.1 %; Platelet Count (auto) 210 10^3/uL (140-450); Red Blood Cells 3.83 10^6/uL (4.5-5.90); Red Cell Distribution Width 15.5 % (11.8-14.3); White Blood Cell 4.8 10^3/uL (4.4-10.8)
[2019-07-31 15:42] LABS: Lactic Acid w/Reflex 3.7 mmol/L (0.4-2.0)
[2019-07-31] MEDS: SODIUM BICARBONATE 650 MG TAB PO SCH ×3 (15:49→21:35)
[2019-07-31] MEDS ORDERED: SODIUM ZIRCONIUM CYCL 10 GM PAK PO ONE (16:30)
[2019-07-31] MEDS ORDERED: ALBUMIN 5% 250 ML IV ONE ×2 (16:30)
[2019-07-31 16:46] VITALS: BP 118/75
[2019-07-31] MEDS ORDERED: D5W IV SCH (17:45)
[2019-07-31] MEDS ORDERED: SODIUM BICARBONATE IV SCH (17:45)
--- NOTE | 2019-07-31 18:29 | NUR ---
Called Pharmacy if they can reschedule the time for Sodium Bicarbonate to 8:00 pm [place]. Albutein drip still getting administered at this time.
--- NOTE | 2019-07-31 19:10 | NUR ---
OPENING NOTE- NOC SHIFT PATIENT IS ALERT AND ORIENTED X4, ANSWERS IN COMPLETE SENTENCES. PATIENT IS SITTING AT EDGE OF BED, DANGLING FEET. DISCUSSED POC WITH PATIENT AND INSTRUCTED PATIENT TO CALL PRN; PATIENT VERBALIZED UNDERSTANDING. WILL CONTINUE TO MONITOR Q1H AND PRN.
[2019-07-31] MEDS: SODIUM BICARBONATE IV SCH (20:32)
[2019-07-31] MEDS: D5W IV SCH (20:32)
[2019-07-31] MEDS: GABAPENTIN 300 MG CAP PO SCH (21:36)
[2019-07-31 22:00] VITALS: BP_SYST 123; BP_SYST 124; BP_DIAS 71
[2019-07-31] MEDS ORDERED: INSULIN LANTUS (GLARGINE) 1 /0.01ml (100units/ml) SC SCH (22:00)
--- NOTE | 2019-07-31 23:50 | NUR ---
PATIENT AMBULATED IN THE HALLWAY USING A WALKER AND ASSISTED BY A FLOOR NURSE. PATIENT TOLERATED WELL. PATIENT BACK IN BED, NO S/SX OF DISTRESS OR SOB. PATIENT DENIES ANY PAIN AT THIS TIME.
[2019-08-01] MEDS: ACCU-CHEK COMFORT CURVE STRIP VI SCH ×4 (00:14→12:20)
[2019-08-01] MEDS: InsuLIN REG 1unit/0.01ml Soln (100units/ml) SC SCH ×4 (00:14→12:27)
[2019-08-01 05:59] VITALS: BP 118/82
[2019-08-01] MEDS: SODIUM BICARBONATE 650 MG TAB PO SCH (06:18)
[2019-08-01 07:47] LABS: Basophils # (auto) 0 uL; Eosinophils # (auto) 0 uL; Hemoglobin 11.9 g/dL (13.5-17.5); Mean Corpuscular Hemoglobin 34.6 pg (28.0-32.0); Monocytes # (auto) 0.5 uL; Neutrophils # (auto) 2.2 uL; Red Blood Cells 3.44 10^6/uL (4.5-5.90); White Blood Cell 3.8 10^3/uL (4.4-10.8)
[2019-08-01 07:49] LABS: Basophils % (auto) 0.8 % (0.0-2.0); Eosinophils % (auto) 0.9 % (0.0-7.0); Hematocrit 34.7 % (41.0-53.0); Lymphocytes % (auto) 26.9 % (10.0-50.0); Mean Corpuscular Hgb Conc. 34.3 g/dL (32.0-36.0); Mean Corpuscular Volume 100.9 fL (80.0-100.0); Monocytes % (auto) 13.2 % (0.0-12.0); Neutrophils % (auto) 58.2 % (37.0-80.0); Nucleated Red Blood Cells % 0.1 %; Platelet Count (auto) 188 10^3/uL (140-450); Red Cell Distribution Width 14.3 % (11.8-14.3)
--- NOTE | 2019-08-01 07:55 | NUR ---
Patient sitting on bed, awake, oriented x4, no acute distress noted.
[2019-08-01 08:04] LABS: Calcium 8.2 mg/dL (8.5-10.1); Potassium 4.6 mmol/L (3.5-5.1)
[2019-08-01 08:08] LABS: BUN/Creatinine Ratio 32.3
[2019-08-01] MEDS: D5W IV SCH (08:13)
[2019-08-01] MEDS: SODIUM BICARBONATE IV SCH (08:13)
[2019-08-01 09:32] VITALS: BP 108/76
--- NOTE | 2019-08-01 10:30 | NUR ---
Dr. Abdul came over to see the patient.
[2019-08-01] MEDS: AMIODARONE HCL 200 MG TAB PO SCH (10:37)
[2019-08-01] MEDS: FAMOTIDINE 20 MG TAB PO SCH (10:37)
[2019-08-01] MEDS ORDERED: FUROSEMIDE 40 MG/4 ML VIAL IV ONE (11:15)
[2019-08-01 12:35] VITALS: BP 109/71
--- NOTE | 2019-08-01 12:59 | NUR ---
Dr. Koo at bedside.
--- NOTE | 2019-08-01 13:02 | NUR ---
Dr. Koo at bedside. MD to discharge the patient today.
--- NOTE | 2019-08-01 14:35 | NUR ---
Patient waiting for his care provider to come over.
--- NOTE | 2019-08-01 15:35 | NUR ---
Discharge instructions given as ordered. Encourage to follow up with PMD as instructed. All questions and concerns addressed. Patient verbalized understanding. Medication reconciliation form completed and copy given to patient. IV removed with catheter intact, pressure dressing applied. Telemetry unit returned to ICU. Patient taken to vehicle via wheelchair with all personal belongings, accompanied by staff and care provider. No distress noted at time of departure.
--- NOTE | 2019-08-01 16:34 | NUR ---
assessment No post discharge needs identified. Addendum: 08/01/19 at 1635 by Bhavani SALCIDO Amended: Links added.
== END 2019-08-01 15:35 | disposition home or self-care (01) | DRG 291 ==
LOC: ER 15:34 → EDBD 15:34 → TELE 15:35 → TELE-WESTW 20:32
PROVIDERS: ADMIT Nurse Practitioner Acute Care; ATTEND Internal Medicine
PROC: 0W993ZZ Drainage of Right Pleural Cavity, Percutaneous Approach (ICD-10-PCS; principal; 2019-07-30)
DX: I13.0 Hypertensive heart and chronic kidney disease with heart failure and stage 1 through stage 4 chronic kidney disease, or unspecified chronic kidney disease (principal); I50.43 Acute on chronic combined systolic (congestive) and diastolic (congestive) heart failure; E87.4 Mixed disorder of acid-base balance; J91.8 Pleural effusion in other conditions classified elsewhere; N17.9 Acute kidney failure, unspecified; I42.9 Cardiomyopathy, unspecified; E11.65 Type 2 diabetes mellitus with hyperglycemia; N18.3 Chronic kidney disease, stage 3 (moderate); E87.5 Hyperkalemia; E11.22 Type 2 diabetes mellitus with diabetic chronic kidney disease; H35.52 Pigmentary retinal dystrophy; H54.8 Legal blindness, as defined in USA; I48.91 Unspecified atrial fibrillation; F17.210 Nicotine dependence, cigarettes, uncomplicated; K74.60 Unspecified cirrhosis of liver; D53.9 Nutritional anemia, unspecified; I25.10 Atherosclerotic heart disease of native coronary artery without angina pectoris; Z87.442 Personal history of urinary calculi; Z95.810 Presence of automatic (implantable) cardiac defibrillator; Z90.89 Acquired absence of other organs; Z82.49 Family history of ischemic heart disease and other diseases of the circulatory system; Z83.3 Family history of diabetes mellitus; Z79.84 Long term (current) use of oral hypoglycemic drugs; Z79.899 Other long term (current) drug therapy
CPT/HCPCS: 10022; 32555; 36415; 36600; 71045; 71250; 76604; 76775; 76942; 80048; 80053; 82805; 82962; 83605; 83735; 83880; 83986; 84484; 85025; 85610; 85730; 87070; 87205; 89051; 93005; 94761; 96374; 96375; 97116; 97530; G0378; J0610; J0696; J1815; J2405